=== PATIENT | male | born 1945 | race Caucasian/White ===

== ENCOUNTER 2025-02-03 20:32 | Inpatient (IN) | payer MEDICARE, BC, SELFPAY ==
[2025-02-03 14:47] VITALS: BP 161/101
--- NOTE | 2025-02-03 16:58 | ED.GENMED ---
History of Present Illness
<Luis Miguel Ureña PA-C - Last Filed: 02/03/25 18:49>
General
Chief Complaint: Breathing Problem
Source: patient
Exam Limitations: none
Time Seen by Provider: 02/03/25 16:35
History of Present Illness
History of Present Illness:
79-year-old male with history of COPD, hypertension presents with a weeks worth of worsening shortness of breath. He also notes leg swelling. He was seen by the family doctor and sent here for further evaluation. He denies chest pain. He is not
anticoagulated. No prior history of arrhythmias. No other
Phy Exam
<Luis Miguel Ureña PA-C - Last Filed: 02/03/25 18:49>
Physical Exam
Physical Exam:
General: Well-appearing male with increased work of breathing
HEENT: Normal cephalic atraumatic
Heart: Irregular rate and rhythm
Lungs: Distant bilaterally with expiratory wheeze
Extremities: Pitting edema bilateral lower extremities
Skin warm no rash
Scores
<Luis Miguel Ureña PA-C - Last Filed: 02/03/25 18:49>
Heart Failure Risk
Heart Failure Risk Score: Not Applicable
Course
<Luis Miguel Ureña PA-C - Last Filed: 02/03/25 18:49>
Orders/Labs/Results
Orders:
Orders
02/03/25 16:47
EKG [Electrocardiogram (*1)] Urgent
Reason for Study: Shortness of Breath
EKG- Treatment ONCE
02/03/25 16:54
Ipratropium/Albuterol Sulfate [Duoneb] 3 ml INH R NOW STA
CR Chest - 2 Views Urgent
Comment:
Reason For Exam: sob
02/03/25 16:57
Furosemide [Lasix] 40 mg IV NOW STA
02/03/25 17:06
Complete Blood Count/With Diff Urgent
Comprehensive Metabolic Panel Urgent
NT-proBNP Urgent
02/03/25 18:43
Azithromycin 500 mg/250 ml [Zithromax Infusion] 500 mg in 250 ml IV NOW
CefTRIAXone [Rocephin] 1,000 mg IV NOW STA
Abnormal Lab Results
02/03/25
17:06
WBC 15.7 H 10^3/uL
(4.8-10.8)
MCH 31.7 H pg
(27.0-31.0)
MPV 10.9 H fL
(7.4-10.4)
Abs Immat Gran (auto) 0.1 H 10^3/uL
(0-0.05)
Absolute Neuts (auto) 14.3 H 10^3/uL
(1.4-6.5)
Absolute Lymphs (auto) 0.4 L 10^3/uL
(1.2-3.4)
Absolute Monos (auto) 0.9 H 10^3/uL
(0.1-0.6)
Immature Gran % 0.6 H %
(0-0.5)
Neutrophils % 90.8 H %
(42.2-75.2)
Lymphocytes % 2.4 L %
(20.5-51.1)
Sodium 130 L mmol/L
(135-145)
Chloride 92 L mmol/L
(98-107)
BUN 38 H mg/dl
(9-20)
Glucose 106 H mg/dl
(70-99)
Total Bilirubin 1.5 H mg/dl
(0.2-1.3)
AST 79 H U/L
(17-59)
02/03/25 17:06
02/03/25 17:06
Vital Signs
Initial and Last Documented VS:
Initial Vital Signs
Temp Pulse Resp BP Pulse Ox
98.1 F 83 26 161/101 85
02/03/25 14:47 02/03/25 14:47 02/03/25 14:47 02/03/25 14:47 02/03/25 14:47
Last Documented Vital Signs
Temp Pulse Resp BP Pulse Ox
98.1 F 83 26 161/101 93
02/03/25 14:47 02/03/25 14:47 02/03/25 14:47 02/03/25 14:47 02/03/25 17:02
<Nicolas Montero, DO - Last Filed: 02/03/25 17:08>
Orders/Labs/Results
Orders:
Orders
02/03/25 16:47
EKG [Electrocardiogram (*1)] Urgent
Reason for Study: Shortness of Breath
EKG- Treatment ONCE
02/03/25 16:54
Ipratropium/Albuterol Sulfate [Duoneb] 3 ml INH R NOW STA
CR Chest - 2 Views Urgent
Comment:
Reason For Exam: sob
02/03/25 16:57
Furosemide [Lasix] 40 mg IV NOW STA
02/03/25 17:06
Complete Blood Count/With Diff Urgent
Comprehensive Metabolic Panel Urgent
NT-proBNP Urgent
02/03/25 18:43
Azithromycin 500 mg/250 ml [Zithromax Infusion] 500 mg in 250 ml IV NOW
CefTRIAXone [Rocephin] 1,000 mg IV NOW STA
Abnormal Lab Results
02/03/25
17:06
WBC 15.7 H 10^3/uL
(4.8-10.8)
MCH 31.7 H pg
(27.0-31.0)
MPV 10.9 H fL
(7.4-10.4)
Abs Immat Gran (auto) 0.1 H 10^3/uL
(0-0.05)
Absolute Neuts (auto) 14.3 H 10^3/uL
(1.4-6.5)
Absolute Lymphs (auto) 0.4 L 10^3/uL
(1.2-3.4)
Absolute Monos (auto) 0.9 H 10^3/uL
(0.1-0.6)
Immature Gran % 0.6 H %
(0-0.5)
Neutrophils % 90.8 H %
(42.2-75.2)
Lymphocytes % 2.4 L %
(20.5-51.1)
Sodium 130 L mmol/L
(135-145)
Chloride 92 L mmol/L
(98-107)
BUN 38 H mg/dl
(9-20)
Glucose 106 H mg/dl
(70-99)
Total Bilirubin 1.5 H mg/dl
(0.2-1.3)
AST 79 H U/L
(17-59)
02/03/25 17:06
02/03/25 17:06
Vital Signs
Initial and Last Documented VS:
Initial Vital Signs
Temp Pulse Resp BP Pulse Ox
98.1 F 83 26 161/101 85
02/03/25 14:47 02/03/25 14:47 02/03/25 14:47 02/03/25 14:47 02/03/25 14:47
Last Documented Vital Signs
Temp Pulse Resp BP Pulse Ox
98.1 F 83 26 161/101 93
02/03/25 14:47 02/03/25 14:47 02/03/25 14:47 02/03/25 14:47 02/03/25 17:02
<Luis Miguel Ureña PA-C - Last Filed: 02/03/25 18:49>
MDM/Problems Addressed
Differential Diagnosis Includes:
Patient here with shortness of breath. Looks volume overloaded on exam is wheezing. He is now requiring 5 L of nasal oxygen where typically he is not on oxygen. Consider COPD for CHF.
EKG does demonstrate atrial fibrillation with a rate of 94 no ischemic changes. This is new for the patient.
Labs pending Lasix ordered neb ordered chest x-ray
<Luis Miguel Ureña PA-C - Last Filed: 02/03/25 18:49>
*Pulse Oximetry
SaO2: 91
Nasal Cannula flow liters per minute: 3
Oxygen Mode of Delivery: Room air
Patient hypoxic: no
*Critical Care Note
Total Time (30-74mins, 75-104mins- exclusive of procedures): Not Applicable
<Luis Miguel Ureña PA-C - Last Filed: 02/03/25 18:49>
Update Note
Update Note:
Patient received nebulizer here Lasix here chest x-ray shows consolidation of the right lower lobe suspicious for pneumonia. White blood cell count is 15.7. Will cover for pneumonia with Rocephin and Zithromax. Patient is requiring supplemental
oxygen will admit to hospital
ED Attending Note
<Luis Miguel Ureña PA-C - Last Filed: 02/03/25 18:49>
-
Portions of this chart may have been created with voice recognition software.� Occasional wrong word or��sound alike� substitutions may have occurred due to the inherent limitations of voice recognition software.
<Nicolas Montero DO - Last Filed: 02/03/25 17:08>
ED Attending Note
Patient seen and examined by attending physician: Yes
I performed the substantive portion of visit, reviewed & personally made and approve the management plan that is documented in note by myself or REINA.: Yes
ED Attending Note:
I have seen and evaluated the patient with a [id number] encounter. I have spoken to the advance practicer provider and involved in the medical history, the physical exam, medical decision making.
Evaluation and management service: agree unless noted differently below.
Results interpretation: agree unless noted differently below.
Focused HPI: 79-year-old male presenting for evaluation of new onset A-fib and hypoxia. Patient has a history of COPD. He complains of swelling in both legs and trouble laying flat due to shortness of breath
Physical exam: Rhonchorous breath sounds with crackles at bases. Pitting edema both legs. Irregular rhythm
Medical Decision Making: New onset A-fib potentially in the setting of new onset CHF or vice versa. Patient is rate controlled. Will give IV Lasix. Will ultimately admit given his hypoxia
Discharge Plan
Departure
Patient Disposition: Admit
Date of Disposition: 02/03/25
Time of Disposition: 18:45
Presentation/result/management discussed w/ accepting MD/DO: Hospitalist
Discharge Problem:
Pneumonia, Atrial fibrillation
Referrals:
Diane Mcnulty PA [Family Provider, Family Practice]
Interventions
Interventions:
*Risk Screen - Suicide Last Done: 02/03/25 14:47
*General Assessment Last Done: 02/03/25 14:47
*Neglect/Abuse Screening Last Done: 02/03/25 14:47
ED- Cardiac Assessment Last Done: 02/03/25 17:02
ED- Pulmonary Assessment Last Done: 02/03/25 17:02
Discharge Date and Time
Print Language: KOSOVAN
[2025-02-03 17:04] VITALS: BMI 24.8
[2025-02-03] MEDS: LASIX 40 MG IV (17:11)
[2025-02-03] MEDS: DUONEB 3 ML INH (17:11)
[2025-02-03 17:20] LABS: Hematocrit 44.6 % (39.0-52.0); Hemoglobin 15.8 g/dL (13.0-18.0); Mean Corp Hgb Conc. 35.4 g/dL (33.0-37.0); Mean Corpuscular Volume 89.4 fL (80.0-94.0); Nucleated Red Blood Cells % 0 % (-); Platelet Count 178 10^3/uL (130-400); Red Cell Dist. Width 13.8 % (11.5-14.5)
[2025-02-03 17:35] LABS: ALT (SGPT) 45 U/L (0-50); AST (SGOT) 79 U/L (17-59); Albumin 4.6 g/dl (3.5-5.0); Alkaline Phosphatase 68 U/L (38-126); Blood Urea Nitrogen 38 mg/dl (9-20); Calcium 9.3 mg/dl (8.4-10.2); Carbon Dioxide 26 mmol/L (22-30); Chloride 92 mmol/L (98-107); Estimated Creatinine Clearance 74 ml/min; Glucose 106 mg/dl (70-99); Potassium 4.2 mmol/L (3.5-5.1); Sodium 130 mmol/L (135-145); Total Protein 7.5 g/dl (6.3-8.2); eGFR > 60.00
[2025-02-03 18:39] VITALS: BP 148/62
[2025-02-03 19:00] VITALS: BP 141/72
--- NOTE | 2025-02-03 19:09 | HPS.HSE ---
Family Physician
-
Family Physician: Diane Mcnulty
Chief Complaint
-
Shortness of breath
History of Present Illness
This is a 79-year-old male with past medical history significant for hypertension, COPD who presents to the emergency department with several weeks of worsening shortness of breath and lower extremity swelling.
Patient reports symptoms began about 1 week ago. He said that he started to wait upper respiratory symptoms such as sore throat and any cough. A few days later his developed similar symptoms but she got over it. He continued to have cough
that went from clear mucus to brown mucus. He started having dyspnea on exertion and shortness of breath. He denies any chest pain. He reported chills. He denied bossman fevers.
He denies any palpitations. He reports that when he lays down he does feel more short of breath due to increased cough production. Patient reports long history of intermittent lower extremity swelling. Initially said this was secondary to
amlodipine which he has been on for several years. He says his weight is around 185 pounds and it has not changed recently. He reports that the edema is dependent that he usually takes hydrochlorothiazide for it. He denies any history of recent
chest pain. He denies lightheadedness or dizziness.
In the emergency department patient was afebrile with a temp of 98.1, blood pressure was 161/100 with a pulse of 83 and he was satting as low as 85% on room air. ECG shows new onset atrial fibrillation at a rate of 94. Chest x-ray with a right
lower lobe infiltrate. BNP was elevated at 1370. He had leukocytosis with a white count of 15.7, hemoglobin and platelets were normal. Sodium was 130 electrolytes BUN and creatinine were all in the normal range with a glucose of 106.
Medical History
Past Medical History
Past Medical History: Reports COPD, HTN and Hypercholesterolemia
Past Surgical History: Reports None
Social History
Tobacco: Former Smoker
Alcohol: Daily (1 glass of wine per family and patient)
Drug: None
Personal:
Living: With Family
Employment: Retired
Family History
Family History: Not pertinent
Allergies / Home Medications
Allergies reflects when Allergies were last updated in [facility].
Home Medications with original date entered in [facility]
Allergy/Medication List:
Allergies
Allergy/AdvReac Type Severity Reaction Status Date / Time
No Known Allergies Allergy Unverified 02/03/25 14:47
Home Medications
hydrochlorothiazide 25 mg tablet 12.5 mg PO DAILY 02/03/25
Amlodipine 10 mg tablet, 10 mg p.o. daily
Incruse Ellipta days 2.5 mcg, 1 puff daily
Review of Systems
-
Constitutional: Reports No Symptoms
EENT: Reports No Symptoms
Respiratory: Reports Cough and Trouble Breathing
Cardiac: Reports No Symptoms
Abdomen/GI: Reports No Symptoms
: Reports No Symptoms
Musculoskeletal: Reports Edema
Skin: Reports No Symptoms
Neurological: Reports No Symptoms
Endocrine: Reports No Symptoms
Hematologic/Lymphatic: Reports No Symptoms
Psych: Reports No Symptoms
Physical Exam
Vital Signs
Vital Signs
Temp Pulse Resp BP Pulse Ox
98.1 F 83 26 161/101 93
02/03/25 14:47 02/03/25 14:47 02/03/25 14:47 02/03/25 14:47 02/03/25 17:02
Physical Exam
General: Well Developed and Conversant
HEENT: NormoCephalic, Anicteric, Moist mucous membranes, Atraumatic and Oxygen
Respiratory: Clear, Wheezes (Profuse wheezing mostly in the right upper and lower lobe, decreased air movement the), Rhonchi and Non Labored Respirations; No Crackles
Cardiac: S1/S2 and Irregular Rhythm
Breast: Deferred by me
GI: Soft, Non Tender, Non Distended and Normal Bowel Sounds
Rectal: Deferred by Provider
Genito-urinary: Deferred by me
Musculoskeletal: Edema, Left Lower Extremity (2+ pitting) and Edema, Right Lower Extremity (2+ pitting)
Skin: Warm
Neuro: AO x 3 and Nonfocal/grossly intact
Psych: Calm
Laboratory Results
-
02/03/25 17:06
02/03/25 17:06
Laboratory Results
Total Bilirubin 1.5 mg/dl (0.2-1.3) H 02/03/25 17:06
AST 79 U/L (17-59) H 02/03/25 17:06
ALT 45 U/L (0-50) 02/03/25 17:06
Alkaline Phosphatase 68 U/L (38-126) 02/03/25 17:06
Data Reviewed
-
Diagnostic Radiology: Image Personally Visualized and interpreted
Medical Tests (Nuc Med, Echo, EKG etc): Image Personally Visualized and interpreted
Lab Data: Labs Reviewed by me
Old Records: Reviewed
Impression/Plan
-
IMPRESSION:
This is a 79-year-old with past medical history of COPD not on home O2, hypertension, former tobacco dependence presenting to the emergency department with shortness of breath wheezing cough and found to have a right lower lobe infiltrate. Clearly
has COPD exacerbation in addition to walking pneumonia. He has lower extremity swelling and new onset atrial fibrillation with controlled rate.
PLAN:
Pneumonia/COPD exacerbation -hypoxic respiratory failure secondary to pneumonia and COPD exacerbation with requirement for 2 L of oxygen. Right lower lobe infiltrate. This occurred in the setting of likely a URI and now he has a post URI pneumonia.
- Admit to telemetry
- Check Legionella and pneumococcal antigen
- Agree with continue with IV ceftriaxone and azithromycin
- Given the degree of wheezing will start oral steroid taper with 40 mg prednisone daily
- DuoNebs azvnti-aag-nazuj and as needed
- Continue his inhaled steroids
New onset atrial fibrillation -rate controlled.
- [id number] = 4, will start ac with eliquis 5
- metoprolol 12.5 bid for now for rate management
- Check TSH
- Echocardiogram
CHF -bilateral lower extremity edema with elevated BNP. 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 Patient feels this is secondary to his amlodipine
- DC hydrochlorothiazide, started on Lasix 40 mg IV daily for now
- Echo as above
- cardiology consultation
Hyponatremia - Hypervolemic
- fluid restriction
- diuretic as above and monitor
- stop hctz
DVT PPX - starting eliquis
Code status - DNR
[2025-02-03] MEDS: ROCEPHIN 1000 MG IV (19:22)
[2025-02-03] MEDS: ZITHROMAX INFUSION 250 IV (19:23)
[2025-02-03] MEDS: DELTASONE 40 MG PO (19:46)
[2025-02-03 20:01] VITALS: BP 143/50
[2025-02-03] MEDS: TYLENOL 650 MG PO (20:44)
[2025-02-03 22:00] VITALS: BP 148/73
--- NOTE | 2025-02-03 22:00 | PTCARENOTE ---
Pt arrived onto floor via stretcher. Pt AAOx3 and able to walk into room with minimal assistance. Pt with no complaints of pain or SOB, on 4L O2. Pt oriented to room and call palm; will continue to monitor.
[2025-02-03 22:01] VITALS: BMI 24.4
[2025-02-03 22:22] VITALS: BMI 24.4
[2025-02-03] MEDS: LOPRESSOR 12.5 MG PO (22:32)
[2025-02-03] MEDS: ELIQUIS 5 MG PO (22:32)
[2025-02-03] MEDS: SYMBICORT 160/4.5 MCG INHALER INH (22:50)
[2025-02-04] VITALS (8 sets, daily range): BP systolic 99–163; BP diastolic 61–86; PULSE 88; O2SAT 97; BMI 24.2
[2025-02-04 06:43] LABS: Hematocrit 41.2 % (39.0-52.0); Hemoglobin 14.7 g/dL (13.0-18.0); Mean Corp Hgb Conc. 35.7 g/dL (33.0-37.0); Mean Corpuscular Volume 90.7 fL (80.0-94.0); Platelet Count 176 10^3/uL (130-400); Red Cell Dist. Width 13.2 % (11.5-14.5)
[2025-02-04 07:14] LABS: Blood Urea Nitrogen 37 mg/dl (9-20); Calcium 8.9 mg/dl (8.4-10.2); Carbon Dioxide 28 mmol/L (22-30); Chloride 90 mmol/L (98-107); Estimated Creatinine Clearance 74 ml/min; Glucose 114 mg/dl (70-99); Potassium 3.9 mmol/L (3.5-5.1); Sodium 126 mmol/L (135-145); eGFR > 60.00
[2025-02-04] MEDS: SYMBICORT 160/4.5 MCG INHALER 2 PUFF INH ×2 (08:08→20:25)
[2025-02-04] MEDS: DUONEB 3 ML INH ×4 (08:11→20:25)
--- NOTE | 2025-02-04 09:02 | CON.CAR ---
Addendum entered and electronically signed by Madan Crowley DO 02/04/25 15:14:
I saw and examined the patient.
The Bottom Liquor Attendant's note was reviewed and I agree with the note.
Comment:
Plan:
Multifactorial dyspnea with acute respiratory failure from right lower lobe pneumonia, acute heart failure and newly diagnosed atrial fibrillation February 03, 2025
Continue IV diuresis with Lasix 40 mg IV daily. He was taking HCTZ prior to admission
Monitor I's and O's Daily weights and creatinine
Check echocardiogram to evaluate left ventricular systolic function in the setting of newly diagnosed atrial fibrillation and heart failure
Outpatient losartan was resumed, monitor blood pressure
Can consider SGLT2 inhibitor as outpatient given his current infection.
Continue Eliquis for stroke prophylaxis
Started on Toprol XL for rate control
Would continue rate control strategy for now given his respiratory status and COPD exacerbation
Continue pulmonary toilet including antibiotics and treatment of right lower lobe pneumonia as per primary service.
Discussed with at bedside and primary service
HPI:-Patient came to the ER last night from his PCPs office with LE edema and SOB for a week and was admitted with RLL PNA, acute HF and new A-fib prompting cardiology consultation. Patient sees his PCP at least twice a year and then as needed when
he is sick, patient reports that he and his both seem to have a cold but his was stable or getting better while he was only getting worse with symptoms of increasing SOB, edema and productive cough. In the PCP office there was some
concern for hypoxia and possible A-fib prompting referral to the ER. ECG in the ER looks like A-fib which is a new diagnosis and HR has been in the 90s without rate controlling medications. He denies any palpitations and no known history of A-fib.
He has never required OAC in the past. CXR in the ER confirmed RLL PNA and patient started on antibiotics. There was also some concern about acute HF and the proBNP was 1370 and patient was started on Lasix 40 mg IV daily and he reports increased
urine output and overall symptomatic improvement in SOB. Patient reports that LE edema appears to be acute on chronic and reports that within the last several months when his amlodipine dose was increased to 10 mg daily is when he first started to
notice increased edema. He is also chronically on HCTZ 25 mg daily and was noted to be hyponatremic on admission.
Original Note:
Consultation
Consultation Request
Date/Time Consultation Requested: 02/04/2025 at 0450
Date/Time Consultation Performed: 02/04/2025 at 0849
Requesting Provider: Dr. Bentley
Performing Provider: Dr. Crowley
Reason for Consultation: Newly diagnosed A-fib and acute HF
Medical History
-
History of Present Illness:
Patient came to the ER last night from his PCPs office with LE edema and SOB for a week and was admitted with RLL PNA, acute HF and new A-fib prompting cardiology consultation. Patient sees his PCP at least twice a year and then as needed when he
is sick, patient reports that he and his both seem to have a cold but his was stable or getting better while he was only getting worse with symptoms of increasing SOB, edema and productive cough. In the PCP office there was some concern
for hypoxia and possible A-fib prompting referral to the ER. ECG in the ER looks like A-fib which is a new diagnosis and HR has been in the 90s without rate controlling medications. He denies any palpitations and no known history of A-fib. He has
never required OAC in the past. CXR in the ER confirmed RLL PNA and patient started on antibiotics. There was also some concern about acute HF and the proBNP was 1370 and patient was started on Lasix 40 mg IV daily and he reports increased urine
output and overall symptomatic improvement in SOB. Patient reports that LE edema appears to be acute on chronic and reports that within the last several months when his amlodipine dose was increased to 10 mg daily is when he first started to notice
increased edema. He is also chronically on HCTZ 25 mg daily and was noted to be hyponatremic on admission.
PMH:
HTN
Emphysema/COPD
Former smoker
Past Medical History
Past Medical History: Other (In HPI)
Past Surgical History: None
Social History
Tobacco: Former Smoker (Smoked from his 20s to his 40s)
Alcohol: Daily (Glass of wine daily)
Drug: None
Personal:
Living: With Family
Family History
Family History: Other (His mother lived to be 90, his father had a stroke later in life, no strong family history of premature CAD)
Allergies / Home Medications
Allergy/AdvReac Type Severity Reaction Status Date / Time
No Known Allergies Allergy Unverified 02/03/25 14:47
�Medication �Instructions �Recorded �Confirmed �Type
acetaminophen 325 mg tablet 650 mg PO Q6HPRN PRN mild pain 02/03/25 02/03/25 History
(Tylenol)
amlodipine 10 mg tablet (Norvasc) 10 mg PO DAILY Blood Pressure 02/03/25 02/03/25 History
fluticasone 250 mcg-salmeterol 50 1 inh inhalation R BID sob 02/03/25 02/03/25 History
mcg/dose blistr powdr for
inhalation (Advair Diskus)
hydrochlorothiazide 25 mg tablet 25 mg PO DAILY Fluid 02/03/25 02/03/25 History
Retention/Swelling
losartan 25 mg tablet 25 mg PO DAILY Blood Pressure 02/03/25 02/03/25 History
umeclidinium 62.5 mcg/actuation 1 inh inhalation R DAILY sob 02/03/25 02/03/25 History
blister powder for inhalation
(Incruse Ellipta)
Review of Systems
-
History Source: Patient
All other systems: Negative unless noted
Physical Exam
Vital Signs
Temp Pulse Resp BP Pulse Ox
97.7 F 82 15 163/77 92
02/04/25 07:08 02/04/25 08:17 02/04/25 08:17 02/04/25 07:08 02/04/25 08:17
GEN: NAD, AAO x 3
HEENT: EOMI, MMM
LUNGS: 4 L NC. Diffuse expiratory wheeze without rales
CV: Rate controlled A-fib on telemetry. Irreg irreg, S1/S2, no appreciable murmur
ABD: ND
EXT: +1-2 pitting B/L LE edema
NEURO: Gross non-focal
SKIN: No rash
Lab Results
02/04/25 05:46
02/04/25 05:46
Fpk-I-Sbjnwdxztuc Pept 1370 pg/ml 02/03/25 17:06
Impression / Plan
-
PCP: Dr. Fuentes
Cardiology none
Impression:
Admitted with RLL PNA, acute HF and new A-fib 02/03/2025
RLL PNA
Acute HF unknown EF
Newly diagnosed paroxysmal atrial fibrillation of unclear duration
HTN
Emphysema/COPD
Former smoker
Hyponatremia
Plan:
-Patient came to the ER last night from his PCPs office with LE edema and SOB for a week and was admitted with RLL PNA, acute HF and new A-fib prompting cardiology consultation. Patient sees his PCP at least twice a year and then as needed when he
is sick, patient reports that he and his both seem to have a cold but his was stable or getting better while he was only getting worse with symptoms of increasing SOB, edema and productive cough. In the PCP office there was some concern
for hypoxia and possible A-fib prompting referral to the ER. ECG in the ER looks like A-fib which is a new diagnosis and HR has been in the 90s without rate controlling medications. He denies any palpitations and no known history of A-fib. He has
never required OAC in the past. CXR in the ER confirmed RLL PNA and patient started on antibiotics. There was also some concern about acute HF and the proBNP was 1370 and patient was started on Lasix 40 mg IV daily and he reports increased urine
output and overall symptomatic improvement in SOB. Patient reports that LE edema appears to be acute on chronic and reports that within the last several months when his amlodipine dose was increased to 10 mg daily is when he first started to notice
increased edema. He is also chronically on HCTZ 25 mg daily and was noted to be hyponatremic on admission.
-ECG reviewed by me looks like A-fib. Telemetry reviewed by me is also A-fib with controlled ventricular response.
-Patient being treated with azithromycin for RLL PNA.
-From a cardiac standpoint patient appears to be in acute HF with unknown EF.
-Weight is down 2 lbs overnight with Lasix 40 mg IV daily, continue diuresis as is. Patient was taking HCTZ 25 mg daily prior to admission.
-EF unknown, check echo on Thursday. Echo order confirmed by me.
-Patient was not taking beta-ronna medication prior to admission and now started on Lopressor 12.5 mg BID, patient is noted to be wheezing, but sounds similar to wheezing he had on admission. Patient has a history of emphysema and COPD but states
he does not typically wheeze. We will change Lopressor to Toprol-XL 25 mg daily starting 02/04/2025 PM, orders placed by me.
-Outpatient dose of losartan 25 mg daily was held on admission for unclear reasons, but will be resumed and orders placed by me 02/04/2025.
-Patient was not taking SGLT2 inhibitor prior to admission, will hold off in the setting of active PNA and can explore this as an outpatient.
-Patient with newly diagnosed A-fib with overall controlled ventricular response, duration of A-fib is unclear as patient is asymptomatic. HR overall controlled and so is possible A-fib has been going on for some time. Regardless rate control with
Toprol-XL as noted above.
-New to Eliquis 5 mg BID (age 79, Cre 0.9, wt 83 kg). Patient willing to continue with OAC and we reviewed stroke risk and bleeding risk and things to look for as a bleeding complication.
-Confirmed with patient that he has never seen a operating room manager prior to this admission, but he had cardiac testing with what sounds like an echo and stress test 20 years ago when he was initially diagnosed with COPD.
[2025-02-04] MEDS: LASIX 40 MG IV (09:09)
[2025-02-04] MEDS: ELIQUIS 5 MG PO ×2 (09:10→20:49)
[2025-02-04] MEDS: DELTASONE 40 MG PO (09:10)
[2025-02-04] MEDS: LOPRESSOR 12.5 MG PO (09:11)
[2025-02-04] MEDS: COZAAR 25 MG PO (13:06)
--- NOTE | 2025-02-04 13:32 | W.PN.HOSP.TC ---
Addendum entered and electronically signed by Mary Bentley MD 02/04/25 14:12:
I saw and evaluated the patient independently. I reviewed and discussed the resident�s note and agree with findings and plan as documented by Dr. Duran.
GENERAL: well developed, well nourished, male in no apparent distress
HEENT: NC/AT--O2 NC--soft hoarse voice
HEART: irreg irreg
LUNGS : rhonchi bilaterally--no wheezing (just finished a breathing treatment)
ABDOM: soft, nontender, nondistended, + bowel sounds
EXT: no cyanosis, clubbing-- 4+ LE pitting edema bilaterally
NEURO: nonfocal
Acute Hypoxemic respiratory failure secondary to COPD exacerbation from presumed community acquired pneumonia--wean O2 as able-- CXR with RLL pna-- Urine legionella and pneumococcal antigen test negative--cont ceftriaxone and oral azithromycin-
Continue on 40 mg prednisone daily to reduce airflow inflammation, duonebs ( made standing) and symbicort to help relieve inflammation and bronchoconstriction, and then acapella/ incentive spirometry-- check FLU/COVID
Dysphagia to oral medications-- ordered a speech eval
New onset atrial fibrillation- Confirmed on EKG, no previous history- [id number] = 4, Eliquis 5 mg bid started --CM to fernandez--cont Toprol XL--check ECHO--TSH WNL--apprec cards
Bilateral lower extremity edema with elevated BNP secondary to suspected CHF-unknown type--apprec cards--ECHO pending--diuresis--daily weights, I/Os
Hyponatremia secondary hypervolemia--follow with diuresis--stop HCTZ--cont lasix--fluid restriction
DVT Proph - eliquis
Code status - DNR
Original Note:
Today's Communication/Plan
-
- f/u with cardiology for pending echo, continue antibiotics, continue to observe vitals
Assessment / Plan
Assessment / Plan
Hypoxemic respiratory failure secondary to pneumonia in the setting of COPD exacerbation:
- On admission he was afebrile with a temperature 98.1, blood pressure was 161/100, pulse 83, 85 on room air
- Chest x-ray showed a right lower lobe infiltrate most likely right lower lobe pneumonia
- Urine legionella and pneumococcal antigen test negative
- Patient started on IV ceftriaxone and azithromycin (later transition to oral)
- Continue on 40 mg prednisone daily to reduce airflow inflammation, duonebs ( made standing) and symbicort to help relieve inflammation and bronchoconstriction, and then acapella/ incentive spirometry to open up airways and then clear mucous
- Ordered an influenza and covid test
Dysphagia to oral medications:
- ordered a speech eval
New onset atrial fibrillation:
- Confirmed on EKG, no previous history
- Admitted to telemetry
- [id number] = 4, Eliquis 5 mg bid started
- Continue with Toprol XL 25 mg for rate control
- TSH normal
- Echocardiogram pending
- Cardiology following
Bilateral lower extremity edema with elevated BNP secondary to suspected unknowns type of heart failure
Hyponatremia secondary hypervolemia?:
- patients clinical presentation is hypervolemic due to crackles in lungs, lower extremity edema, cough, and orthopnea.
- DC hydrochlorothiazide, started on Lasix 40 mg IV daily for now
- Echo pending
- fluid restriction
- c/w lasix 40 mg iv daily. Monitor weights, ins/ outs, urine output.
- stop hctz
DVT PPX - eliquis
Code status - DNR
Anticipated Discharge: 24 - 48 hours
Subjective/Interval History
-
Date of Service: February 04, 2025
Patient states shortness of breath, a productive cough, and inability to swallow a pill which started today on review of systems. No headache, nausea, fever, chills, nausea, vomiting, dizziness, syncope, abdominal pain, diarrhea, weakness, numbness,
palpations, chest pain.
Objective Data
-
Labs:
Laboratory Results
02/04/25
05:46
WBC 9.8
Hgb 14.7
Hct 41.2
Plt Count 176
Sodium 126 L
Potassium 3.9
Chloride 90 L
Carbon Dioxide 28
BUN 37 H
Creatinine 0.9
Glucose 114 H
Calcium 8.9
Vital Signs:
Vital Signs
Temp Pulse Resp BP Pulse Ox
97.8 F 78 18 139/78 95
02/04/25 11:29 02/04/25 11:39 02/04/25 11:39 02/04/25 11:29 02/04/25 11:39
I&O
02/03/25 02/04/25 02/05/25
06:59 06:59 06:59
Intake Total 240 / 240
Output Total 600 / 600
Balance -360 / -360
Review of Systems
-
History Source: Patient
All other systems: Reviewed and negative
Physical Exam
-
General: Well Developed
HEENT: Oxygen
Respiratory: Wheezes (diffuse over both lungs) and Rhonchi (diffuse over both lungs)
Cardiac: Regular Rhythm, Irregular Rhythm and Tachycardic
GI: Soft, Nontender, Nondistended and Normal Bowel Sounds
Musculoskeletal: No Clubbing, No Cyanosis, Edema, Right Lower Extrem and Edema, Left Lower Extrem
Skin: Warm and Dry
Neuro: AO x 3
Psych: Calm
Data Reviewed
-
Diagnostic Radiology: Report Reviewed by me and Discussed with Physician
Labs: Labs Reviewed by me and Discussed with Physician
--- NOTE | 2025-02-04 14:41 | CM ---
Addendum entered by Anna Marie Gresham 02/04/25 16:18:
Eliquis is $116.01, but was able to activate 30 day free co-pay card for 1 month only. Patient/ aware to look at his part D prescription plan in open enrollment time to see if he can change the cost of his high medications. Hospitalist aware
Original Note:
I.A: Completed By MELY Thrasher.
Patient lives with his in a [facility] with 2 RANDY, 2 BA on 03/31, No DME, uses Inhalers, No VN/PT, and No Inpatient Rehab.
PCP: Dr. Tristan Moore
Pharmacy: [facility]
Patient is not oxygen at home so watch for this. MELY Thrasher is pricing Eliquis. PLAN: Anticipate Home No Needs.
[2025-02-04] MEDS: ZITHROMAX 500 MG PO (15:08)
[2025-02-04 17:00] LABS: COVID-19 Antigen Negative (Negative)
[2025-02-04] MEDS: ROCEPHIN 1000 MG IV (17:07)
[2025-02-04] MEDS: STERILE WATER FOR INJECTION 10 ML IV (17:07)
[2025-02-04] MEDS: TOPROL XL 25 MG PO (22:36)
[2025-02-05 03:17] VITALS: BP 147/71
[2025-02-05 06:00] VITALS: BMI 24.5
[2025-02-05 07:13] VITALS: BP 154/75
[2025-02-05] MEDS: DUONEB 3 ML INH ×3 (07:34→20:04)
[2025-02-05] MEDS: SYMBICORT 160/4.5 MCG INHALER 2 PUFF INH ×2 (07:34→20:04)
[2025-02-05] MEDS: TYLENOL 650 MG PO (08:44)
[2025-02-05] MEDS: LASIX 40 MG IV ×2 (08:45→17:00)
[2025-02-05] MEDS: ZITHROMAX 500 MG PO (08:46)
[2025-02-05] MEDS: DELTASONE 40 MG PO (08:46)
[2025-02-05] MEDS: ELIQUIS 5 MG PO ×2 (08:47→20:41)
[2025-02-05] MEDS: TOPROL XL 25 MG PO (08:47)
[2025-02-05] MEDS: COZAAR 25 MG PO (08:47)
[2025-02-05 09:25] LABS: Hematocrit 43.3 % (39.0-52.0); Hemoglobin 15.0 g/dL (13.0-18.0); Mean Corp Hgb Conc. 34.6 g/dL (33.0-37.0); Mean Corpuscular Volume 89.8 fL (80.0-94.0); Nucleated Red Blood Cells % 0 % (-); Platelet Count 189 10^3/uL (130-400); Red Cell Dist. Width 13.4 % (11.5-14.5)
[2025-02-05 09:42] LABS: ALT (SGPT) 66 U/L (0-50); AST (SGOT) 72 U/L (17-59); Albumin 3.8 g/dl (3.5-5.0); Alkaline Phosphatase 68 U/L (38-126); Blood Urea Nitrogen 35 mg/dl (9-20); Calcium 9.3 mg/dl (8.4-10.2); Carbon Dioxide 30 mmol/L (22-30); Chloride 92 mmol/L (98-107); Estimated Creatinine Clearance 83 ml/min; Glucose 105 mg/dl (70-99); Magnesium 2.2 mg/dl (1.6-2.3); Potassium 3.7 mmol/L (3.5-5.1); Sodium 129 mmol/L (135-145); Total Protein 6.8 g/dl (6.3-8.2); eGFR > 60.00
--- NOTE | 2025-02-05 10:19 | W.PN.CARDCBS ---
Today's Communication / Plan
-
Continue IV diuresis and increase to Lasix 40 mg IV BID
Wt is flat
He was taking HCTZ prior to admission
Monitor I's and O's Daily weights and creatinine
Echo pending Feb 06 to evaluate left ventricular systolic function in the setting of newly diagnosed atrial fibrillation and heart failure
Cont GDMT:
Outpatient losartan was resumed, monitor blood pressure
Can consider SGLT2 inhibitor as outpatient given his current infection.
Regarding aFib:
Continue Eliquis for stroke prophylaxis
Cont Toprol XL started this admit for rate control, remains rate controlled
Would continue rate control strategy for now given his respiratory status and COPD exacerbation
Consider steroid adjustment with worsening wheezing, defer to primary service
Impression / Plan
-
.
PCP: Dr. Fuentes
Cardiology none
Impression:
Multifactorial dyspnea with acute respiratory failure from right lower lobe pneumonia, acute heart failure and newly diagnosed atrial fibrillation February 03, 2025
RLL PNA
Acute HF unknown EF
Newly diagnosed paroxysmal atrial fibrillation of unclear duration
HTN
Emphysema/COPD
Former smoker
Hyponatremia
Plan:
Multifactorial dyspnea with acute respiratory failure from right lower lobe pneumonia, acute heart failure and newly diagnosed atrial fibrillation February 03, 2025
Continue IV diuresis and increase to Lasix 40 mg IV BID
Wt is flat
He was taking HCTZ prior to admission
Monitor I's and O's Daily weights and creatinine
Echo pending Feb 06 to evaluate left ventricular systolic function in the setting of newly diagnosed atrial fibrillation and heart failure
Cont GDMT:
Outpatient losartan was resumed, monitor blood pressure
Can consider SGLT2 inhibitor as outpatient given his current infection.
Regarding aFib:
Continue Eliquis for stroke prophylaxis
Cont Toprol XL started this admit for rate control, remains rate controlled
Would continue rate control strategy for now given his respiratory status and COPD exacerbation
Continue pulmonary toilet including antibiotics and treatment of right lower lobe pneumonia as per primary service.
Consider steroid adjustment with worsening wheezing, defer to primary service
Discussed with primary service
HPI:-Patient came to the ER last night from his PCPs office with LE edema and SOB for a week and was admitted with RLL PNA, acute HF and new A-fib prompting cardiology consultation. Patient sees his PCP at least twice a year and then as needed when
he is sick, patient reports that he and his both seem to have a cold but his was stable or getting better while he was only getting worse with symptoms of increasing SOB, edema and productive cough. In the PCP office there was some
concern for hypoxia and possible A-fib prompting referral to the ER. ECG in the ER looks like A-fib which is a new diagnosis and HR has been in the 90s without rate controlling medications. He denies any palpitations and no known history of A-fib.
He has never required OAC in the past. CXR in the ER confirmed RLL PNA and patient started on antibiotics. There was also some concern about acute HF and the proBNP was 1370 and patient was started on Lasix 40 mg IV daily and he reports increased
urine output and overall symptomatic improvement in SOB. Patient reports that LE edema appears to be acute on chronic and reports that within the last several months when his amlodipine dose was increased to 10 mg daily is when he first started to
notice increased edema. He is also chronically on HCTZ 25 mg daily and was noted to be hyponatremic on admission.
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
Subjective
Date of Service: February 05, 2025
Pt seen and examined. No cp, breahing worse earlier this am
Objective
Labs:
02/05/25 08:20
02/05/25 08:20
Labs
Hgb 15.0 g/dL (13.0-18.0) 02/05/25 08:20
Hct 43.3 % (39.0-52.0) 02/05/25 08:20
Plt Count 189 10^3/uL (130-400) 02/05/25 08:20
Sodium 129 mmol/L (135-145) L 02/05/25 08:20
Potassium 3.7 mmol/L (3.5-5.1) 02/05/25 08:20
BUN 35 mg/dl (9-20) H 02/05/25 08:20
Creatinine 0.8 mg/dL (0.7-1.3) 02/05/25 08:20
Glucose 105 mg/dl (70-99) H 02/05/25 08:20
Vital Signs and I&O:
Vital Signs
Temp Pulse Resp BP Pulse Ox
97.8 F 85 16 154/75 94
02/05/25 07:13 02/05/25 07:38 02/05/25 07:38 02/05/25 08:45 02/05/25 08:00
Vital Signs
Temp Pulse Resp BP Pulse Ox
97.8 F 85 16 154/75 94
02/05/25 07:13 02/05/25 07:38 02/05/25 07:38 02/05/25 08:45 02/05/25 08:00
Intake & Output
02/03/25 02/04/25 02/05/25 02/06/25
06:59 06:59 06:59 06:59
Intake Total 240 / 240 670 / 670
Output Total 600 / 600 250 / 250
Balance -360 / -360 420 / 420
Physical Exam
Physical Exam
General: No acute distress, AAOX3
Neck: Negative JVD
Heart: Irregularly irregular, Negative S3 positive S1/S2, Negative S4, No murmur
Lungs: Diffuse wheezing/rales/rhonchi
Abd: Positive BS, NT/ND, neg rebound/rigidity/guarding
Ext: Negative cyanosis/clubbing/edema
Neuro: nonfocal
[2025-02-05 11:47] VITALS: BP 139/76
--- NOTE | 2025-02-05 12:55 | PTOTSP ---
Speech Therapy Evaluation
Pt seen for bedside swallow assessment. Pt is at an increased risk of aspiration given history of COPD, current need for O2 (4L NC), and dx of RLL PNA. Pt managed regular solids and thin liquids with no overt s/sx of aspiration. Voice characterized
by hoarseness and breathiness. Pt reports voice changes started when upper respiratory issues appeared. Pt denies coughing during meals but notes cough is present most at night. PNA likely bacterial/infectious vs aspiration related.
Recommendation:
1. IDDSI 7 Regular solids, IDDSI 0 thin liquids
2. Medication as best tolerated (Pt prefers whole in applesauce)
3. Standard aspiration precautions
4. Aspiration risk factors present. At bedside pt managing regular solids and thin liquids with no overt s/sx of aspiration. 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 Please reconsult if concerned for aspiration or if worsening chest imaging/respiratory status.
--- NOTE | 2025-02-05 13:11 | W.PN.HOSP.TC ---
Addendum entered and electronically signed by Mary Bentley MD 02/05/25 15:12:
I saw and evaluated the patient independently. I reviewed and discussed the resident�s note and agree with findings and plan as documented by Dr. Duran.
GENERAL: well developed, well nourished, male in no apparent distress
HEENT: NC/AT--O2 NC--soft hoarse voice
HEART: irreg irreg
LUNGS : rhonchi bilaterally-- wheezing diffusely
ABDOM: soft, nontender, nondistended, + bowel sounds
EXT: no cyanosis, clubbing-- 4+ LE pitting edema bilaterally
NEURO: nonfocal
Acute Hypoxemic respiratory failure secondary to COPD exacerbation from presumed community acquired pneumonia and acute exacerbation of CHF-unknown type--wean O2 as able-- CXR with RLL pna-- Urine legionella and pneumococcal antigen test
negative--cont ceftriaxone and oral azithromycin- Continue on 40 mg prednisone daily, duonebs, and symbicort-- acapella/ incentive spirometry-- FLU/COVID neg--Echo pending--cont diuresis
Dysphagia to oral medications-- ordered a speech eval--passed--reg diet, thins
New onset atrial fibrillation- Confirmed on EKG, no previous history- [id number] = 4, Eliquis 5 mg bid started --CM priced--cont Toprol XL--ECHO Thursday--TSH WNL--apprec cards
Bilateral lower extremity edema with elevated BNP secondary to suspected CHF--unknown type--apprec cards--ECHO pending--diuresis, cards increased lasix--daily weights, I/Os
Hyponatremia secondary hypervolemia--follow with diuresis--stop HCTZ--cont lasix--fluid restriction--improving
DVT Proph - eliquis
Code status - DNR
Original Note:
Today's Communication/Plan
-
- f/u with cardiology
- continue to trend weight and cmp
- continue to monitor respiratory status
Assessment / Plan
Assessment / Plan
Hypoxemic respiratory failure secondary to pneumonia in the setting of COPD exacerbation:
- On admission he was afebrile with a temperature 98.1, blood pressure was 161/100, pulse 83, 85 on room air
- Chest x-ray showed a right lower lobe infiltrate most likely right lower lobe pneumonia
- Urine legionella and pneumococcal antigen test negative
- continue on IV ceftriaxone and azithromycin (later transition to oral)
- Continue on 40 mg prednisone daily to reduce airflow inflammation, duonebs ( made standing) and symbicort to help relieve inflammation and bronchoconstriction, and then acapella/ incentive spirometry to open up airways and then clear mucous
- Will order tesslon pearls for cough
- influenza/ covid negative
- sputum culture pending
Dysphagia to oral medications:
- speech eval pending
New onset atrial fibrillation:
- Confirmed on EKG, no previous history
- Admitted to telemetry
- [id number] = 4, continue Eliquis
- Continue with Toprol XL 25 mg for rate control
- TSH normal
- Echocardiogram pending
- Cardiology following
Bilateral lower extremity edema with elevated BNP secondary to suspected unknowns type of heart failure
Hyponatremia secondary hypervolemia?:
- patients clinical presentation is hypervolemic due to crackles in lungs, lower extremity edema, cough, and orthopnea.
- switch Lasix 40 mg IV daily to 40 mg IV BID as his weight has increased 1 kg since yesterday. His weight is 84 kg today from 83 kg yesterday.
- Echo pending
- fluid restriction because he is volume overloaded on exam and on labs
- Monitor weights, ins/ outs, urine output.
- stop hctz
DVT PPX - eliquis
Code status - DNR
Anticipated Discharge: 24 - 48 hours
Subjective/Interval History
-
Date of Service: February 05, 2025
Patient states persistent shortness of breath, a productive cough, and inability to sleep all night due to the cough which he stated today on review of systems. No headache, nausea, fever, chills, nausea, vomiting, dizziness, syncope, abdominal
pain, diarrhea, weakness, numbness, palpations, chest pain.
Objective Data
-
Labs:
Laboratory Results
02/05/25
08:20
WBC 11.2 H
Hgb 15.0
Hct 43.3
Plt Count 189
Sodium 129 L
Potassium 3.7
Chloride 92 L
Carbon Dioxide 30
BUN 35 H
Creatinine 0.8
Glucose 105 H
Calcium 9.3
Total Bilirubin 1.1
AST 72 H
ALT 66 H
Alkaline Phosphatase 68
Vital Signs:
Vital Signs
Temp Pulse Resp BP Pulse Ox
97.7 F 83 18 139/76 92
02/05/25 11:47 02/05/25 11:47 02/05/25 11:47 02/05/25 11:47 02/05/25 11:47
I&O
02/04/25 02/05/25 02/06/25
06:59 06:59 06:59
Intake Total 240 / 240 670 / 670
Output Total 600 / 600 250 / 250
Balance -360 / -360 420 / 420
Review of Systems
-
History Source: Patient
All other systems: Reviewed and negative
Physical Exam
-
General: Well Developed
HEENT: Oxygen
Respiratory: Wheezes (diffuse over both lungs) and Rhonchi (diffuse over both lungs)
Cardiac: Regular Rhythm, Irregular Rhythm and Tachycardic
GI: Soft, Nontender, Nondistended and Normal Bowel Sounds
Musculoskeletal: No Clubbing, No Cyanosis, Edema, Right Lower Extrem and Edema, Left Lower Extrem
Skin: Warm and Dry
Neuro: AO x 3
Psych: Calm
Data Reviewed
-
Diagnostic Radiology: Report Reviewed by me and Discussed with Physician
Labs: Labs Reviewed by me and Discussed with Physician
[2025-02-05 15:08] VITALS: BP 129/66
[2025-02-05] MEDS: STERILE WATER FOR INJECTION 10 ML IV (17:01)
[2025-02-05] MEDS: ROCEPHIN 1000 MG IV (17:01)
[2025-02-05 20:15] VITALS: BP 149/71
[2025-02-05] MEDS: TESSALON PERLES 200 MG PO (23:17)
[2025-02-05 23:58] VITALS: BP 142/75
[2025-02-06] VITALS (7 sets, daily range): BP systolic 133–165; BP diastolic 63–81; PULSE 79–95; O2SAT 96
[2025-02-06 06:45] LABS: Hematocrit 44.1 % (39.0-52.0); Hemoglobin 15.3 g/dL (13.0-18.0); Mean Corp Hgb Conc. 34.7 g/dL (33.0-37.0); Mean Corpuscular Volume 92.8 fL (80.0-94.0); Nucleated Red Blood Cells % 0 % (-); Platelet Count 199 10^3/uL (130-400); Red Cell Dist. Width 13.1 % (11.5-14.5)
[2025-02-06 07:07] LABS: ALT (SGPT) 74 U/L (0-50); AST (SGOT) 65 U/L (17-59); Albumin 3.9 g/dl (3.5-5.0); Alkaline Phosphatase 58 U/L (38-126); Blood Urea Nitrogen 31 mg/dl (9-20); Calcium 9.3 mg/dl (8.4-10.2); Chloride 90 mmol/L (98-107); Estimated Creatinine Clearance 74 ml/min; Glucose 94 mg/dl (70-99); Magnesium 2.1 mg/dl (1.6-2.3); Potassium 4.0 mmol/L (3.5-5.1); Sodium 132 mmol/L (135-145); Total Protein 6.4 g/dl (6.3-8.2); eGFR > 60.00
[2025-02-06 07:15] LABS: Carbon Dioxide 32 mmol/L (22-30)
[2025-02-06] MEDS: SYMBICORT 160/4.5 MCG INHALER 2 PUFF INH ×2 (07:19→20:27)
[2025-02-06] MEDS: LASIX 40 MG IV ×2 (07:31→16:06)
[2025-02-06] MEDS: ZITHROMAX 500 MG PO (07:31)
[2025-02-06] MEDS: DELTASONE 40 MG PO (07:32)
[2025-02-06] MEDS: TOPROL XL 25 MG PO (07:32)
[2025-02-06] MEDS: ELIQUIS 5 MG PO ×2 (07:32→21:17)
[2025-02-06] MEDS: COZAAR 25 MG PO (07:32)
--- NOTE | 2025-02-06 08:41 | W.PN.HOSP.TC ---
Today's Communication/Plan
-
Echo pending
Assessment / Plan
Assessment / Plan
Impression
Mr. Ulysses Duran is a 79-year-old with past medical history of COPD not on home O2, HTN, former tobacco dependence presenting to the emergency department with shortness of breath wheezing cough and found to have a right lower lobe infiltrate.
Evidently has COPD exacerbation in addition to walking pneumonia. He has lower extremity swelling and new onset atrial fibrillation with controlled rate.
HPI
Patient reports symptoms began about 1 week ago. He said that he started to wait upper respiratory symptoms such as sore throat and any cough. A few days later his developed similar symptoms but she got over it. He continued to have cough
that went from clear mucus to brown mucus. He started having dyspnea on exertion and shortness of breath. He denies any chest pain. He reported chills. He denied bossman fevers.
He denies any palpitations. He reports that when he lays down he does feel more short of breath due to increased cough production. Patient reports long history of intermittent lower extremity swelling. Initially said this was secondary to
amlodipine which he has been on for several years. He says his weight is around 185 pounds and it has not changed recently. He reports that the edema is dependent that he usually takes hydrochlorothiazide for it. He denies any history of recent
chest pain. He denies lightheadedness or dizziness.
ED course
In the emergency department patient was afebrile with a temp of 98.1, blood pressure was 161/100 with a pulse of 83 and he was satting as low as 85% on room air. ECG shows new onset atrial fibrillation at a rate of 94. Chest x-ray with a right
lower lobe infiltrate/pneumonia. BNP was elevated at 1370. He had leukocytosis with a white count of 15.7, hemoglobin and platelets were normal. Sodium was 130 electrolytes BUN and creatinine were all in the normal range with a glucose of 106.
Chest x-ray 02/03/2025: Right lower lobe pneumonia
Plan
Hypoxemic respiratory failure secondary to pneumonia in the setting of COPD exacerbation:
COPD
:: On admission he was afebrile with a temperature 98.1, blood pressure was 161/100, pulse 83, 85 on room air
:: Chest x-ray showed a right lower lobe infiltrate most likely right lower lobe pneumonia
:: Urine legionella and pneumococcal antigen test negative
- continue IV ceftriaxone (02/03/2025� ) and p.o. azithromycin (02/04/2025� )
- Continue 40 mg prednisone daily to reduce airflow inflammation, duonebs (standing) and symbicort to relieve inflammation and bronchoconstriction, and acapella/ incentive spirometry to open airways and clear mucous
- Tessalon pearls for cough
:: influenza and covid negative
- sputum culture final pending. Usual respiratory jayleen
- On 2 L nasal cannula 02/06/2025. Wean as tolerated. Not on O2 at home
New onset paroxysmal atrial fibrillation:
:: Confirmed on EKG on admission 02/03/2025, no previous history
:: Admitted to telemetry
- [id number] = 4, continue Eliquis
- Continue with Toprol XL 25 mg for rate control
:: TSH normal
- Echocardiogram pending
Cardiology following
� Consider steroid adjustment with worsening wheezing. Defer to primary service
Bilateral lower extremity edema with elevated BNP secondary to suspected unknowns type of heart failure
Hyponatremia secondary to hypervolemia?
Hypertension
:: hypervolemic given crackles, lower extremity edema, cough, and orthopnea.
� Fluid restriction 64 ounces daily
- Increased Lasix 40 mg IV daily to 40 mg IV BID as his weight has increased 1 kg since yesterday. His weight is 84 kg today from 83 kg yesterday.
- Echo pending
- Monitor weights, ins/outs, urine output.
� Continue INFORMATION MANAGEMENT MANAGER losartan 25 mg p.o. daily
� Held amlodipine 10 mg p.o. daily due to lower extremity edema
- hctz held due to hyponatremia. Anticipate discontinuing due to increase side effects in older adults
Dysphagia to oral medications:
- speech recommendation: Regular diet
1. IDDSI 7 Regular solids, IDDSI 0 thin liquids
2. Medication as best tolerated (Pt prefers whole in applesauce)
3. Standard aspiration precautions
4. Aspiration risk factors present. At bedside pt managing regular solids and thin liquids with no overt s/sx of aspiration. FUEL MANAGER s/o. Please reconsult if concerned for aspiration or if worsening chest imaging/respiratory status.
DVT PPX - eliquis
Code status - DNR
Anticipated Discharge: 24 - 48 hours
Subjective/Interval History
-
Date of Service: February 06, 2025
No acute events overnight. Patient states his breathing is better than yesterday (on 2 L this morning). Patient stated his hoarseness is new since his pneumonia symptoms started.
The patient denied chest pain, feeling palpitations, feeling tachycardia, lightheadedness, vision changes, weakness, tingling, numbness.
Objective Data
-
Labs:
Microbiology Results - Entire Visit
02/04/25 07:29 Sputum Respiratory Culture - Preliminary
Usual Respiratory Jayleen
02/04/25 07:29 Sputum Gram Stain - Preliminary
02/04/25 16:30 Nasal Swab Influenza Types A & B (LEONCIO) - Final
Negative for Influenza A & B, NAAT
Negative results must be combined with clinical observations
and patient history.
Nucleic Acid Amplification test (NAAT)performed on the
[employer] platform.
02/03/25 22:39 Urine Legionella Urinary Antigen - Final
Negative for Legionella pneumophila Serogroup 1 antigen.
A negative result does not rule out the possiblity of
Legionella infection due to other serogroups or species of
Legionella. Clinical correlation is recommended.
02/03/25 22:39 Urine Streptococcus pneumoniae Antigen (M - Final
Negative for Streptococcus pneumoniae antigen.
A negative result does not exclude infection with
Streptococcus pneumoniae. Clinical correlation is
recommended.
Hematology and Coagulation - Last 24 hours
02/05/25 02/06/25 Range/Units
08:20 05:44
WBC 11.2 H 11.8 H (4.8-10.8) 10^3/uL
RBC 4.82 4.75 (4.70-6.10) 10^6/uL
Hgb 15.0 15.3 (13.0-18.0) g/dL
Hct 43.3 44.1 (39.0-52.0) %
MCV 89.8 92.8 (80.0-94.0) fL
MCH 31.1 H 32.2 H (27.0-31.0) pg
MCHC 34.6 34.7 (33.0-37.0) g/dL
RDW 13.4 13.1 (11.5-14.5) %
Plt Count 189 199 (130-400) 10^3/uL
MPV 10.7 H 10.5 H (7.4-10.4) fL
Abs Immat Gran (auto) 0.1 H 0.1 H (0-0.05) 10^3/uL
Absolute Neuts (auto) 9.0 H 9.4 H (1.4-6.5) 10^3/uL
Absolute Lymphs (auto) 0.9 L 0.8 L (1.2-3.4) 10^3/uL
Absolute Monos (auto) 1.2 H 1.6 H (0.1-0.6) 10^3/uL
Absolute Eos (auto) 0.0 0.0 (0-0.7) 10^3/uL
Absolute Basos (auto) 0.0 0.0 (0-0.2) 10^3/uL
Immature Gran % 0.6 H 0.9 H (0-0.5) %
Neutrophils % 80.2 H 79.1 H (42.2-75.2) %
Lymphocytes % 7.8 L 6.5 L (20.5-51.1) %
Monocytes % 11.0 H 13.1 H (1.7-9.3) %
Eosinophils % 0.2 0.2 (0-6) %
Basophils % 0.2 0.2 (0-2) %
Nucleated RBC % 0 0 (-) %
Blood Gas and Chemistry - Last 24 hours
02/05/25 02/06/25 Range/Units
08:20 05:44
Sodium 129 L 132 L (135-145) mmol/L
Potassium 3.7 4.0 (3.5-5.1) mmol/L
Chloride 92 L 90 L (98-107) mmol/L
Carbon Dioxide 30 32 H (22-30) mmol/L
BUN 35 H 31 H (9-20) mg/dl
Creatinine 0.8 0.9 (0.7-1.3) mg/dL
Estimated Creat Clear 83 74 ml/min
eGFR > 60.00 > 60.00
Glucose 105 H 94 (70-99) mg/dl
Calcium 9.3 9.3 (8.4-10.2) mg/dl
Magnesium 2.2 2.1 (1.6-2.3) mg/dl
Total Bilirubin 1.1 0.9 (0.2-1.3) mg/dl
AST 72 H 65 H (17-59) U/L
ALT 66 H 74 H (0-50) U/L
Alkaline Phosphatase 68 58 (38-126) U/L
Total Protein 6.8 6.4 (6.3-8.2) g/dl
Albumin 3.8 3.9 (3.5-5.0) g/dl
Vital Signs:
Vital Signs
Temp Pulse Resp BP Pulse Ox
98.1 F 67 16 152/70 94
02/06/25 07:00 02/06/25 07:24 02/06/25 07:24 02/06/25 07:00 02/06/25 07:24
I&O
02/05/25 02/06/25 02/07/25
06:59 06:59 06:59
Intake Total 670 / 670 540 / 540
Output Total 250 / 250
Balance 420 / 420 540 / 540
Weight - last 4 days
02/04/25 02/05/25 02/06/25 02/07/25
06:59 06:59 06:59 06:59
Actual Weight 83.053 kg 84.085 kg
Review of Systems
-
History Source: Patient
All other systems: Reviewed and negative
Physical Exam
-
General: Well Developed, Well Nourished, No Apparent Distress, Comfortable and Conversant
HEENT: Normocephalic, Atraumatic, Anicteric, No Ptosis, Nose Appears Normal, Ears Appear Normal, Oxygen (2 L) and Other (Hoarse voice)
Respiratory: Wheezes (Diffuse wheezes in all lung odom)
Cardiac: Regular Rhythm and S1/S2
GI: Soft, Nontender, Nondistended and Normal Bowel Sounds
Musculoskeletal: No Cyanosis, Edema, Right Lower Extrem (Edema to distal third of ankle bilaterally) and Edema, Left Lower Extrem
Skin: Warm and Dry
Neuro: Awake, Alert, Nonfocal/Grossly Intact and Central Nerve's Intact
Psych: Calm
--- NOTE | 2025-02-06 12:40 | W.PN.UPDATE ---
Addendum entered and electronically signed by Thomas Will MD 02/06/25 16:41:
Sepsis due to pneumonia with organ dysfunction of acute hypoxic respiratory failure
Original Note:
Update Note
Progress Note Update
I personally performed a history and physical exam of the patient and discussed management with the resident. I reviewed the resident's note and agree with the documented findings and plan of care HPI/CC.
Shortness of breath is improving.
Gen: NAD, AAOx3, appears chronically ill
Eyes: EOMI, PERRLA, no scleral icterus.
Neck: supple.
CV: RRR, +S1/S2, no m/r/g.
Resp: distant BS, otherwise CTAB, no rales, wheezes, or rhonchi.
Abd: +BS, soft, NT, ND
Skin: No rashes. 1-2+ B/L LE edema
Neuro: CN 2-12 intact, non-focal.
Psych: Normal mood and affect.
02/04/25 07:29 Sputum Respiratory Culture - Final
Usual Respiratory Lizette
02/04/25 07:29 Sputum Gram Stain - Final
02/04/25 16:30 Nasal Swab Influenza Types A & B (LEONCIO) - Final
Negative for Influenza A & B, NAAT
Negative results must be combined with clinical observations
and patient history.
Nucleic Acid Amplification test (NAAT)performed on the
[employer] platform.
02/03/25 22:39 Urine Legionella Urinary Antigen - Final
Negative for Legionella pneumophila Serogroup 1 antigen.
A negative result does not rule out the possiblity of
Legionella infection due to other serogroups or species of
Legionella. Clinical correlation is recommended.
02/03/25 22:39 Urine Streptococcus pneumoniae Antigen (M - Final
Negative for Streptococcus pneumoniae antigen.
A negative result does not exclude infection with
Streptococcus pneumoniae. Clinical correlation is
recommended.
CXR: Right lower lobe pneumonia.
Echo:
1. Ejection fraction is 70% by visual assessment.
2. Normal left ventricular size and systolic function.
3. Thickened and calcified aortic valve with normal leaflet excursion.
4. Moderate tricuspid regurgitation. Estimated pulmonary artery pressure of 55 mmHg assuming a right atrial pressure of 8 mmHg.
Acute hypoxemic respiratory failure:
-multifactorial due to RLL pneumonia (causing acute COPD Exac) and acute HFpEF
-was on 5L NC O2, now weaned to 2L NC O2
-COVID/Flu NEG
-cont Rocephin/Azithro
-cont Prednisone
-cont Symbicort/duonebs
-cont IV Lasix, daily wts, I/Os
New onset atrial fibrillation:
-cont Eliquis/BB
Hypervolemic hyponatremia:
-due to acute CHF and HCTZ (which has been stopped)
-improving
DNR/Eliquis
Total time spent on today's encounter was 50 minutes which included time spent in counseling the patient/family regarding diagnosis and treatment plan as listed above, goals of care, and symptom management. Case was discussed with nursing staff,
specialists, and care coordinators/case management. All labs and imaging personally reviewed by me. Remainder the time spent in detailed review of previous records, lab data, imaging, and other medical provider documentation.
--- NOTE | 2025-02-06 13:12 | W.PN.CARDCBS ---
Addendum entered and electronically signed by Ulysses Smith MD 02/06/25 14:07:
I saw and examined the patient.
The AGRICULTURAL EXTENSION SPECIALIST or PA's note was reviewed and I agree with the note.
Comment: General: Well developed, well nourished in NAD.
Neck: Supple, no JVD, HJR, carotids +2 B/L, no bruits bilaterally.
Heart: Non displaced PMI, Irreg, no murmurs, No S3, S4, no rubs.
Lungs: Scattered rhonchi,
Extremities: No clubbing, cyanosis or edema bilaterally.
Neuro: Grossly nonfocal, awake, alert and oriented x3.
Remains in rate controlled A-fib. Consider cardioversion as an outpatient. Continue to treat pneumonia and COPD. Has not diuresed on IV Lasix and remains on oxygen.
Original Note:
Today's Communication / Plan
-
No appreciable diuresis despite Lasix 40 mg IV BID and being loop diuretic na�ve on admission
EF preserved by echo
Remains in rate controlled A-fib, no plans for rhythm control
Impression / Plan
-
PCP: Dr. Fuentes
Cardiology: None
Impression:
Admitted with RLL PNA, acute HF and new A-fib 02/03/2025
RLL PNA
Acute HFpEF
Newly diagnosed paroxysmal atrial fibrillation of unclear duration
HTN
Emphysema/COPD
Former smoker
Hyponatremia
Echo 02/06/2025: EF 70%, normal LV size and function, thickened and calcified aortic valve with normal leaflet excursion, moderate TR with PAP 55 mmHg
Plan:
-Patient admitted with multifactorial hypoxia cardiology consulted for new diagnosis of A-fib and acute HF.
-Patient is being treated with Rocephin for RLL PNA
-No appreciable diuresis and weight remains stable at 185 lbs despite Lasix 40 mg IV BID. Patient was taking HCTZ 25 mg daily prior to admission, this is now on hold.
-EF preserved at 70% without significant valve disease on echo. proBNP was 1370 on admission, but CXR was most striking for PNA. Given lack of diuresis and preserved EF on echo it is not clear that patient is in acute HF and wonder if it could be
that the bulk of his symptoms are related to severe underlying lung disease and PNA.
-Patient was started on Toprol-XL 25 mg daily on admission and is tolerating all doses thus far without any increase in wheezing
-Outpatient dose of losartan 25 mg daily has been continued
-Patient was not taking SGLT2 inhibitor prior to admission, will hold off in the setting of active PNA and can explore this as an outpatient.
-Telemetry reviewed by me shows rate controlled A-fib, A-fib is a new diagnosis this admission
-Duration of A-fib is unclear as patient is asymptomatic. HR overall controlled and so is possible A-fib has been going on for some time. Regardless rate control with Toprol-XL as noted above.
-New to Eliquis 5 mg BID (age 79, Cre 0.9, wt 83 kg). Patient willing to continue with OAC and we reviewed stroke risk and bleeding risk and things to look for as a bleeding complication. Appreciate help of case management on checking cost, he can
use the free 30-day card and then it would be $116 a month thereafter
HPI:-Patient came to the ER last night from his PCPs office with LE edema and SOB for a week and was admitted with RLL PNA, acute HF and new A-fib prompting cardiology consultation. Patient sees his PCP at least twice a year and then as needed when
he is sick, patient reports that he and his both seem to have a cold but his was stable or getting better while he was only getting worse with symptoms of increasing SOB, edema and productive cough. In the PCP office there was some
concern for hypoxia and possible A-fib prompting referral to the ER. ECG in the ER looks like A-fib which is a new diagnosis and HR has been in the 90s without rate controlling medications. He denies any palpitations and no known history of A-fib.
He has never required OAC in the past. CXR in the ER confirmed RLL PNA and patient started on antibiotics. There was also some concern about acute HF and the proBNP was 1370 and patient was started on Lasix 40 mg IV daily and he reports increased
urine output and overall symptomatic improvement in SOB. Patient reports that LE edema appears to be acute on chronic and reports that within the last several months when his amlodipine dose was increased to 10 mg daily is when he first started to
notice increased edema. He is also chronically on HCTZ 25 mg daily and was noted to be hyponatremic on admission.
Progress Note - Exceptional Student Education Teacher
Subjective
Date of Service: February 06, 2025
He feels the same
Objective
Labs:
02/06/25 05:44
02/06/25 05:44
Labs
Hgb 15.3 g/dL (13.0-18.0) 02/06/25 05:44
Hct 44.1 % (39.0-52.0) 02/06/25 05:44
Plt Count 199 10^3/uL (130-400) 02/06/25 05:44
Sodium 132 mmol/L (135-145) L 02/06/25 05:44
Potassium 4.0 mmol/L (3.5-5.1) 02/06/25 05:44
BUN 31 mg/dl (9-20) H 02/06/25 05:44
Creatinine 0.9 mg/dL (0.7-1.3) 02/06/25 05:44
Glucose 94 mg/dl (70-99) 02/06/25 05:44
Vital Signs and I&O:
Vital Signs
Temp Pulse Resp BP Pulse Ox
98.1 F 67 16 152/70 93
02/06/25 07:00 02/06/25 07:24 02/06/25 07:24 02/06/25 07:00 02/06/25 10:06
Vital Signs
Temp Pulse Resp BP Pulse Ox
98.1 F 67 16 152/70 93
02/06/25 07:00 02/06/25 07:24 02/06/25 07:24 02/06/25 07:00 02/06/25 10:06
Intake & Output
02/04/25 02/05/25 02/06/25 02/07/25
06:59 06:59 06:59 06:59
Intake Total 240 / 240 670 / 670 540 / 540
Output Total 600 / 600 250 / 250
Balance -360 / -360 420 / 420 540 / 540
Physical Exam
Physical Exam
GEN: NAD, AAO x 3
HEENT: EOMI, MMM
LUNGS: 2 L NC. Dyspneic with conversation
CV: Rate controlled A-fib on telemetry.
EXT: +1-2 pitting B/L LE edema
--- NOTE | 2025-02-06 13:29 | CM ---
Patient is currently requiring 2 liters of oxygen, per patient he did not require oxygen prior to admission.
Plan To follow with patient progress, any oxygen needs at discharge.
--- NOTE | 2025-02-06 16:23 | PN.CDI ---
CDI
- -
CDI:
Physician Documentation Request
Admit Date: 02/03/25 20:[address] Gunter,
[facility] is using an adapted version of the 2016 Third International Consensus Definitions for Sepsis and Septic Shock (Sepsis-3) where sepsis is defined as life threatening organ dysfunction caused by a deregulated host response to infection.
Please reference the official [facility] Sepsis Recognition Tool for further information, which can be found on the Intranet under Infection Prevention.
Clinical Indicators Include:
Progress Notes: 02/06 'Acute hypoxemic respiratory failure:-multifactorial due to RLL pneumonia (causing acute COPD Exac) and acute HFpEF'
Treatment: Rocephin/azithromycin, was on 5 L,
Based on your medical judgment, can you further clarify the diagnosis being monitored/treated this admission?
� Sepsis due to pneumonia with organ dysfunction of acute hypoxic respiratory failure
� pneumonia only
� Other
� Clinically unable to determine
Use of terms such as suspected, likely, concern for, or probable (associated with a specific diagnosis that is being evaluated, monitored, or treated as if it exists) are acceptable and can be coded in the inpatient setting when documented at the
time of discharge.
Please use your independent medical judgement in providing your response.
Thank you,
Sarah Andino RN, BSN
CDI Specialist
tiger text
[2025-02-06] MEDS: STERILE WATER FOR INJECTION 10 ML IV (17:01)
[2025-02-06] MEDS: ROCEPHIN 1000 MG IV (17:01)
[2025-02-06] MEDS: TESSALON PERLES 200 MG PO ×2 (17:01→21:20)
[2025-02-06] MEDS: DUONEB 3 ML INH (20:27)
[2025-02-07] VITALS (8 sets, daily range): BP systolic 123–169; BP diastolic 64–92; PULSE 81–83; O2SAT 94; BMI 23.7
[2025-02-07] MEDS: COZAAR 50 MG PO (07:39)
[2025-02-07] MEDS: DELTASONE 40 MG PO (07:39)
[2025-02-07] MEDS: TOPROL XL 25 MG PO (07:39)
[2025-02-07] MEDS: ZITHROMAX 500 MG PO (07:39)
[2025-02-07] MEDS: ELIQUIS 5 MG PO ×2 (07:40→19:26)
[2025-02-07] MEDS: LASIX 40 MG IV (07:40)
[2025-02-07] MEDS: SYMBICORT 160/4.5 MCG INHALER 2 PUFF INH ×2 (08:01→19:18)
--- NOTE | 2025-02-07 10:14 | W.PN.UPDATE ---
Update Note
Progress Note Update
I saw and evaluated the patient. I reviewed the resident�s note and agree with findings and plan as documented in the resident�s note.
Gen: NAD, AAOx3, appears chronically ill
Eyes: EOMI, PERRLA, no scleral icterus.
Neck: supple.
CV: remains RRR, +S1/S2, no m/r/g.
Resp: remains distant BS, otherwise CTAB, no rales, wheezes, or rhonchi.
Abd: +BS, soft, NT, ND
Skin: No rashes. remains 1-2+ B/L LE edema
Neuro: CN 2-12 intact, non-focal.
Psych: Normal mood and affect.
02/04/25 07:29 Sputum Respiratory Culture - Final
Usual Respiratory Lizette
02/04/25 07:29 Sputum Gram Stain - Final
02/04/25 16:30 Nasal Swab Influenza Types A & B (LEONCIO) - Final
Negative for Influenza A & B, NAAT
Negative results must be combined with clinical observations
and patient history.
Nucleic Acid Amplification test (NAAT)performed on the
[employer] platform.
02/03/25 22:39 Urine Legionella Urinary Antigen - Final
Negative for Legionella pneumophila Serogroup 1 antigen.
A negative result does not rule out the possiblity of
Legionella infection due to other serogroups or species of
Legionella. Clinical correlation is recommended.
02/03/25 22:39 Urine Streptococcus pneumoniae Antigen (M - Final
Negative for Streptococcus pneumoniae antigen.
A negative result does not exclude infection with
Streptococcus pneumoniae. Clinical correlation is
recommended.
Acute hypoxemic respiratory failure:
-Sepsis due to pneumonia with organ dysfunction of acute hypoxic respiratory failure
-multifactorial due to RLL pneumonia (causing acute COPD Exac) and acute HFpEF
-was on 5L NC O2, now weaned to 1L NC O2
-COVID/Flu NEG
-cont Rocephin/Azithro
-cont Prednisone (40mg daily x 5 days)
-cont Symbicort/duonebs
-increase IV Lasix to 80mg IV BID as no appreciable diuresis, discussed with cards
-daily wts, I/Os
-RN instructed to titrate NC O2 to pulse ox 89-92%
New onset atrial fibrillation:
-cont Eliquis/BB
Hypervolemic hyponatremia:
-due to acute CHF and HCTZ (which has been stopped)
-improving
Family updated at bedside, RN updated.
DNR/Eliquis
[2025-02-07 11:03] LABS: Hematocrit 49.5 % (39.0-52.0); Hemoglobin 17.0 g/dL (13.0-18.0); Mean Corp Hgb Conc. 34.3 g/dL (33.0-37.0); Mean Corpuscular Volume 92.4 fL (80.0-94.0); Nucleated Red Blood Cells % 0 % (-); Platelet Count 252 10^3/uL (130-400); Red Cell Dist. Width 13.2 % (11.5-14.5)
[2025-02-07 11:08] LABS: ALT (SGPT) 87 U/L (0-50); AST (SGOT) 70 U/L (17-59); Albumin 4.4 g/dl (3.5-5.0); Alkaline Phosphatase 57 U/L (38-126); Blood Urea Nitrogen 31 mg/dl (9-20); Calcium 9.7 mg/dl (8.4-10.2); Chloride 90 mmol/L (98-107); Estimated Creatinine Clearance 74 ml/min; Glucose 97 mg/dl (70-99); Potassium 4.8 mmol/L (3.5-5.1); Sodium 134 mmol/L (135-145); Total Protein 7.4 g/dl (6.3-8.2); eGFR > 60.00
[2025-02-07 11:32] LABS: Carbon Dioxide 36 mmol/L (22-30)
[2025-02-07] MEDS: TESSALON PERLES 200 MG PO (11:32)
--- NOTE | 2025-02-07 12:56 | PTOTSP ---
pt currently requires supervision to no assistance to complete simple ADLs, functional transfers, ambulation. pt currently on 1LO2. education provided regarding energy conservation, autogenic breathing. pt verbalized and demonstrated understanding.
no acute OT needs identified at this time, will sign off.
--- NOTE | 2025-02-07 13:07 | W.PN.HOSP.TC ---
Today's Communication/Plan
-
Continuing to wean patient's nasal cannula O2.
Echo with 70% ejection fraction
Assessment / Plan
Assessment / Plan
Impression
Mr. Ulysses Duran is a 79-year-old with past medical history of COPD not on home O2, HTN, former tobacco dependence presenting to the emergency department with shortness of breath wheezing cough and found to have a right lower lobe infiltrate.
Evidently has COPD exacerbation in addition to walking pneumonia. He has lower extremity swelling and new onset atrial fibrillation with controlled rate.
HPI
Patient reports symptoms began about 1 week ago. He said that he started to wait upper respiratory symptoms such as sore throat and any cough. A few days later his developed similar symptoms but she got over it. He continued to have cough
that went from clear mucus to brown mucus. He started having dyspnea on exertion and shortness of breath. He denies any chest pain. He reported chills. He denied bossman fevers.
He denies any palpitations. He reports that when he lays down he does feel more short of breath due to increased cough production. Patient reports long history of intermittent lower extremity swelling. Initially said this was secondary to
amlodipine which he has been on for several years. He says his weight is around 185 pounds and it has not changed recently. He reports that the edema is dependent that he usually takes hydrochlorothiazide for it. He denies any history of recent
chest pain. He denies lightheadedness or dizziness.
ED course
In the emergency department patient was afebrile with a temp of 98.1, blood pressure was 161/100 with a pulse of 83 and he was satting as low as 85% on room air. ECG shows new onset atrial fibrillation at a rate of 94. Chest x-ray with a right
lower lobe infiltrate/pneumonia. BNP was elevated at 1370. He had leukocytosis with a white count of 15.7, hemoglobin and platelets were normal. Sodium was 130 electrolytes BUN and creatinine were all in the normal range with a glucose of 106.
Chest x-ray 02/03/2025: Right lower lobe pneumonia
Plan
Hypoxemic respiratory failure secondary to pneumonia in the setting of COPD exacerbation:
COPD
:: On admission he was afebrile with a temperature 98.1, blood pressure was 161/100, pulse 83, 85 on room air
:: Chest x-ray showed a right lower lobe infiltrate most likely right lower lobe pneumonia
:: Urine legionella and pneumococcal antigen test negative
- continue IV ceftriaxone (02/03/2025� ) and p.o. azithromycin (02/04/2025� )
- Continue 40 mg prednisone daily to reduce airflow inflammation, duonebs (standing) and symbicort to relieve inflammation and bronchoconstriction, and acapella/ incentive spirometry to open airways and clear mucous
- Tessalon pearls for cough
:: influenza and covid negative
- sputum cultures: Usual respiratory jayleen, not sufficient sample final
- On 0-1 L nasal cannula 02/06/2025. Wean as tolerated. Not on O2 at home
New onset paroxysmal atrial fibrillation:
:: Confirmed on EKG on admission 02/03/2025, no previous history
:: Admitted to telemetry
:: [id number] = 4
� Continue Eliquis 5 mg p.o. twice daily
- Continue with Toprol XL 25 mg for rate control
:: TSH normal
- Echocardiogram 02/06/2025: EF 70%, normal LV size and systolic function. Thickened and calcified aortic valve. Moderate tricuspid regurg. Estimated PA pressure 55 mmHg, assuming right atrial pressure 8 mmHg.
Cardiology following
� Consider steroid adjustment with worsening wheezing. Defer to primary service
Bilateral lower extremity edema with elevated BNP secondary to suspected unknowns type of heart failure
Hyponatremia secondary to hypervolemia?
Hypertension
:: hypervolemic given crackles, lower extremity edema, cough, and orthopnea.
� Fluid restriction 50 ounces per day
- Increased Lasix 40 mg IV daily to 40 mg IV BID as his weight has increased 1 kg since yesterday. His weight is 84 kg today from 83 kg yesterday.
- Echo pending
- Monitor weights, ins/outs, urine output.
� Continue TUG CAPTAIN losartan 25 mg p.o. daily
� Held amlodipine 10 mg p.o. daily due to lower extremity edema
- hctz held due to hyponatremia. Anticipate discontinuing due to increase side effects in older adults
Dysphagia to oral medications:
- speech recommendation: Regular diet
1. IDDSI 7 Regular solids, IDDSI 0 thin liquids
2. Medication as best tolerated (Pt prefers whole in applesauce)
3. Standard aspiration precautions
4. Aspiration risk factors present. At bedside pt managing regular solids and thin liquids with no overt s/sx of aspiration. 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 Please reconsult if concerned for aspiration or if worsening chest imaging/respiratory status.
DVT PPX - eliquis
Code status - DNR
Anticipated Discharge: 24 - 48 hours
Subjective/Interval History
-
Date of Service: February 07, 2025
No acute events overnight. Patient states his breathing continues to improve day by day.
Objective Data
-
Labs:
Microbiology Results - Entire Visit
02/07/25 00:50 Sputum Respiratory Culture - Final
02/07/25 00:50 Sputum Gram Stain - Final
02/04/25 07:29 Sputum Respiratory Culture - Final
Usual Respiratory Jayleen
02/04/25 07:29 Sputum Gram Stain - Final
02/04/25 16:30 Nasal Swab Influenza Types A & B ([facility]ONCIO) - Final
Negative for Influenza A & B, NAAT
Negative results must be combined with clinical observations
and patient history.
Nucleic Acid Amplification test (NAAT)performed on the
[employer] platform.
02/03/25 22:39 Urine Legionella Urinary Antigen - Final
Negative for Legionella pneumophila Serogroup 1 antigen.
A negative result does not rule out the possiblity of
Legionella infection due to other serogroups or species of
Legionella. Clinical correlation is recommended.
02/03/25 22:39 Urine Streptococcus pneumoniae Antigen (M - Final
Negative for Streptococcus pneumoniae antigen.
A negative result does not exclude infection with
Streptococcus pneumoniae. Clinical correlation is
recommended.
Hematology and Coagulation - Last 24 hours
02/07/25 Range/Units
10:35
WBC 14.5 H (4.8-10.8) 10^3/uL
RBC 5.36 (4.70-6.10) 10^6/uL
Hgb 17.0 (13.0-18.0) g/dL
Hct 49.5 (39.0-52.0) %
MCV 92.4 (80.0-94.0) fL
MCH 31.7 H (27.0-31.0) pg
MCHC 34.3 (33.0-37.0) g/dL
RDW 13.2 (11.5-14.5) %
Plt Count 252 D (130-400) 10^3/uL
MPV 10.3 (7.4-10.4) fL
Abs Immat Gran (auto) 0.2 H (0-0.05) 10^3/uL
Absolute Neuts (auto) 12.4 H (1.4-6.5) 10^3/uL
Absolute Lymphs (auto) 0.5 L (1.2-3.4) 10^3/uL
Absolute Monos (auto) 1.4 H (0.1-0.6) 10^3/uL
Absolute Eos (auto) 0.0 (0-0.7) 10^3/uL
Absolute Basos (auto) 0.1 (0-0.2) 10^3/uL
Immature Gran % 1.3 H (0-0.5) %
Neutrophils % 85.6 H (42.2-75.2) %
Lymphocytes % 3.1 L (20.5-51.1) %
Monocytes % 9.5 H (1.7-9.3) %
Eosinophils % 0.1 (0-6) %
Basophils % 0.4 (0-2) %
Nucleated RBC % 0 (-) %
Blood Gas and Chemistry - Last 24 hours
02/07/25 02/07/25 Range/Units
10:20 10:35
Sodium Cancelled 134 L
Potassium Cancelled 4.8
Chloride Cancelled 90 L
Carbon Dioxide Cancelled 36 H
BUN Cancelled 31 H
Creatinine Cancelled 0.9
Estimated Creat Clear Cancelled 74
eGFR Cancelled > 60.00
Glucose Cancelled 97
Calcium Cancelled 9.7
Total Bilirubin 1.9 H D (0.2-1.3) mg/dl
AST 70 H (17-59) U/L
ALT 87 H (0-50) U/L
Alkaline Phosphatase 57 (38-126) U/L
Total Protein 7.4 (6.3-8.2) g/dl
Albumin 4.4 (3.5-5.0) g/dl
Vital Signs:
Vital Signs
Temp Pulse Resp BP Pulse Ox
98.1 F 88 18 137/75 91
02/07/25 11:35 02/07/25 11:35 02/07/25 11:35 02/07/25 11:35 02/07/25 11:35
I&O
02/06/25 02/07/25 02/08/25
06:59 06:59 06:59
Intake Total 540 / 540
Balance 540 / 540
Review of Systems
-
History Source: Patient and Family
All other systems: Reviewed and negative
Physical Exam
-
General: Well Developed, Well Nourished, No Apparent Distress, Comfortable and Conversant
HEENT: Normocephalic, Atraumatic, Moist Mucous Membranes, Anicteric, No Ptosis, Nose Appears Normal, Ears Appear Normal and Oxygen (Patient was conversant and appeared comfortable on 0 L. When he was told he was on 3 L, he requested 1 L, so O2 was
increased to 1 L)
Respiratory: Clear to Auscultation and Wheezes (Minimal wheezing in the posterior right lung field, wheezing much decreased from yesterday)
Cardiac: Regular Rhythm and S1/S2
GI: Soft, Nontender, Nondistended and Normal Bowel Sounds
Musculoskeletal: No Clubbing, No Cyanosis, Edema, Right Lower Extrem and Edema, Left Lower Extrem
Skin: Warm and Dry
Neuro: Awake and Alert
Psych: Calm
--- NOTE | 2025-02-07 13:48 | CM ---
Chart reviewed, per physician Lasix have been increased to 80mg IV BID, new diagnosis of AFIB, patient was seen by physical therapy and occupational therapy, and they are recommending home no needs, patient is currently requiring one liter of
oxygen.
Plan; Home with spouse when stable.
--- NOTE | 2025-02-07 15:17 | W.PN.CARDCBS ---
Addendum entered and electronically signed by Ulysses Smith MD 02/07/25 15:40:
I saw and examined the patient.
The CATALYST RECOVERY OPERATOR or PA's note was reviewed and I agree with the note.
Comment: General: Well developed, well nourished in NAD.
Neck: Supple, no JVD, HJR, carotids +2 B/L, no bruits bilaterally.
Heart: Non displaced PMI, RRR, no murmurs, No S3, S4, no rubs.
Lungs: Crackles at the bases
Extremities: No clubbing, cyanosis or edema bilaterally.
Neuro: Grossly nonfocal, awake, alert and oriented x3.
He is a difficult examination but remains on oxygen. Discussed with primary service and IV Lasix will be increased. Will recheck proBNP. Continue to follow renal function with diuresis. Might consider eventual outpatient cardioversion. Unclear
if he will tolerate sedation at present.
Original Note:
Today's Communication / Plan
-
Lasix IV dose increased
Recheck proBNP
Follow BMP
Impression / Plan
-
PCP: Dr. Fuentes
Cardiology: None
Impression:
Admitted with RLL PNA, acute HF and new A-fib 02/03/2025
RLL PNA
Acute HFpEF
Newly diagnosed paroxysmal atrial fibrillation of unclear duration
HTN
Emphysema/COPD
Former smoker
Hyponatremia
Echo 02/06/2025: EF 70%, normal LV size and function, thickened and calcified aortic valve with normal leaflet excursion, moderate TR with PAP 55 mmHg
Plan:
-Patient admitted with multifactorial hypoxia cardiology consulted for new diagnosis of A-fib and acute HF.
-Patient is being treated with Rocephin and azithromycin for RLL PNA
-Patient was not taking a loop diuretic prior to admission, but he was taking HCTZ 25 mg daily. Patient diuresed with Lasix 40 mg IV BID initially and weight is overall down 6 lbs since admission.
-proBNP was only 1370 on admission, recheck proBNP now, ordered by me
-EF preserved at 70% without significant valve disease on echo.
-Patient was started on Toprol-XL 25 mg daily on admission and is tolerating all doses thus far without any increase in wheezing
-Outpatient dose of losartan increased to 50 mg daily this admission
-Outpatient dose of amlodipine 10 mg daily has been on hold, patient reports increase in LE edema as an outpatient prior to admission correlated with increased dose of amlodipine by his PCP to help control BP
-Patient was not taking SGLT2 inhibitor prior to admission, will hold off in the setting of active PNA and can explore this as an outpatient.
-Telemetry reviewed by me shows rate controlled A-fib, A-fib is a new diagnosis this admission
-Duration of A-fib is unclear as patient is asymptomatic. HR overall controlled with Toprol-XL as noted above.
-New to Eliquis 5 mg BID (age 79, Cre 0.9, wt 81 kg). Patient willing to continue with OAC and we reviewed stroke risk and bleeding risk and things to look for as a bleeding complication. Appreciate help of case management on checking cost, he can
use the free 30-day card and then it would be $116 a month thereafter
HPI:-Patient came to the ER last night from his PCPs office with LE edema and SOB for a week and was admitted with RLL PNA, acute HF and new A-fib prompting cardiology consultation. Patient sees his PCP at least twice a year and then as needed when
he is sick, patient reports that he and his both seem to have a cold but his was stable or getting better while he was only getting worse with symptoms of increasing SOB, edema and productive cough. In the PCP office there was some
concern for hypoxia and possible A-fib prompting referral to the ER. ECG in the ER looks like A-fib which is a new diagnosis and HR has been in the 90s without rate controlling medications. He denies any palpitations and no known history of A-fib.
He has never required OAC in the past. CXR in the ER confirmed RLL PNA and patient started on antibiotics. There was also some concern about acute HF and the proBNP was 1370 and patient was started on Lasix 40 mg IV daily and he reports increased
urine output and overall symptomatic improvement in SOB. Patient reports that LE edema appears to be acute on chronic and reports that within the last several months when his amlodipine dose was increased to 10 mg daily is when he first started to
notice increased edema. He is also chronically on HCTZ 25 mg daily and was noted to be hyponatremic on admission.
Progress Note - Engineering Specialist Technician
Subjective
Date of Service: February 07, 2025
Overall he feels better compared to admission
Objective
Labs:
02/07/25 10:35
02/07/25 10:35
Labs
Hgb 17.0 g/dL (13.0-18.0) 02/07/25 10:35
Hct 49.5 % (39.0-52.0) 02/07/25 10:35
Plt Count 252 10^3/uL (130-400) D 02/07/25 10:35
Sodium 134 mmol/L (135-145) L 02/07/25 10:35
Potassium 4.8 mmol/L (3.5-5.1) 02/07/25 10:35
BUN 31 mg/dl (9-20) H 02/07/25 10:35
Creatinine 0.9 mg/dL (0.7-1.3) 02/07/25 10:35
Glucose 97 mg/dl (70-99) 02/07/25 10:35
Vital Signs and I&O:
Vital Signs
Temp Pulse Resp BP Pulse Ox
98.1 F 88 18 137/75 91
02/07/25 11:35 02/07/25 11:35 02/07/25 11:35 02/07/25 11:35 02/07/25 11:35
Vital Signs
Temp Pulse Resp BP Pulse Ox
98.1 F 88 18 137/75 91
02/07/25 11:35 02/07/25 11:35 02/07/25 11:35 02/07/25 11:35 02/07/25 11:35
Intake & Output
02/05/25 02/06/25 02/07/25 02/08/25
06:59 06:59 06:59 06:59
Intake Total 670 / 670 540 / 540
Output Total 250 / 250
Balance 420 / 420 540 / 540
Physical Exam
Physical Exam
GEN: NAD, AAO x 3
HEENT: EOMI, MMM
LUNGS: 1 L NC. No audible wheeze
CV: Rate controlled A-fib on telemetry.
EXT: +1 pitting B/L LE edema
[2025-02-07] MEDS: LASIX 80 MG IV (16:52)
[2025-02-07] MEDS: ROCEPHIN 1000 MG IV (16:55)
[2025-02-07] MEDS: STERILE WATER FOR INJECTION 10 ML IV (16:55)
[2025-02-08] VITALS (7 sets, daily range): BP systolic 135–166; BP diastolic 69–79; PULSE 81; O2SAT 89; BMI 23.4
[2025-02-08] MEDS: SYMBICORT 160/4.5 MCG INHALER 2 PUFF INH ×2 (07:45→19:54)
[2025-02-08] MEDS: ELIQUIS 5 MG PO ×2 (08:10→19:48)
[2025-02-08] MEDS: COZAAR 50 MG PO (08:10)
[2025-02-08] MEDS: DELTASONE 40 MG PO (08:10)
[2025-02-08] MEDS: ZITHROMAX 500 MG PO (08:10)
[2025-02-08] MEDS: TOPROL XL 25 MG PO (08:10)
[2025-02-08] MEDS: LASIX 80 MG IV ×2 (08:10→17:19)
[2025-02-08 08:12] LABS: Hematocrit 47.2 % (39.0-52.0); Hemoglobin 16.4 g/dL (13.0-18.0); Mean Corp Hgb Conc. 34.7 g/dL (33.0-37.0); Mean Corpuscular Volume 94.0 fL (80.0-94.0); Platelet Count 321 10^3/uL (130-400); Red Cell Dist. Width 13.1 % (11.5-14.5)
[2025-02-08 08:43] LABS: Blood Urea Nitrogen 35 mg/dl (9-20); Calcium 9.3 mg/dl (8.4-10.2); Chloride 92 mmol/L (98-107); Estimated Creatinine Clearance 74 ml/min; Glucose 101 mg/dl (70-99); Potassium 4.3 mmol/L (3.5-5.1); Sodium 135 mmol/L (135-145); eGFR > 60.00
--- NOTE | 2025-02-08 09:00 | W.PN.HOSP.TC ---
Today's Communication/Plan
-
Patient's respiratory symptoms (shortness of breath/O2 requirement, cough) are improving, mild lower extremity edema persists. Lasix was doubled to 80 mg IV twice daily. Chest x-ray today demonstrated improving pneumonia.
Assessment / Plan
Assessment / Plan
Impression
Mr. Ulysses Duran is a 79-year-old with past medical history of COPD not on home O2, HTN, former tobacco dependence presenting to the emergency department with shortness of breath wheezing cough and found to have a right lower lobe infiltrate.
Evidently has COPD exacerbation in addition to walking pneumonia. He has lower extremity swelling and new onset atrial fibrillation with controlled rate.
HPI
Patient reports symptoms began about 1 week ago. He said that he started to wait upper respiratory symptoms such as sore throat and any cough. A few days later his developed similar symptoms but she got over it. He continued to have cough
that went from clear mucus to brown mucus. He started having dyspnea on exertion and shortness of breath. He denies any chest pain. He reported chills. He denied bossman fevers.
He denies any palpitations. He reports that when he lays down he does feel more short of breath due to increased cough production. Patient reports long history of intermittent lower extremity swelling. Initially said this was secondary to
amlodipine which he has been on for several years. He says his weight is around 185 pounds and it has not changed recently. He reports that the edema is dependent that he usually takes hydrochlorothiazide for it. He denies any history of recent
chest pain. He denies lightheadedness or dizziness.
ED course
In the emergency department patient was afebrile with a temp of 98.1, blood pressure was 161/100 with a pulse of 83 and he was satting as low as 85% on room air. ECG shows new onset atrial fibrillation at a rate of 94. Chest x-ray with a right
lower lobe infiltrate/pneumonia. BNP was elevated at 1370. He had leukocytosis with a white count of 15.7, hemoglobin and platelets were normal. Sodium was 130 electrolytes BUN and creatinine were all in the normal range with a glucose of 106.
Chest x-ray 02/03/2025: Right lower lobe pneumonia
Plan
Hypoxemic respiratory failure secondary to pneumonia in the setting of COPD exacerbation:
COPD
:: On admission he was afebrile with a temperature 98.1, blood pressure was 161/100, pulse 83, 85 on room air
:: CXR on admission: RLL lobe infiltrate, likely pneumonia. CXR 02/07/2025: persistent although improved patchy airspace opacities within the RLL, likely improving pneumonia.
:: Urine legionella and pneumococcal antigen test negative
- continue IV ceftriaxone (02/03/2025� ) and p.o. azithromycin (02/04/2025� )
- Continue 40 mg prednisone daily to reduce airflow inflammation, duonebs (standing) and symbicort to relieve inflammation and bronchoconstriction, and acapella/ incentive spirometry to open airways and clear mucous
- Tessalon pearls for cough
:: influenza and covid negative
- sputum cultures: Usual respiratory jayleen, not sufficient sample final
- On 0-1 L nasal cannula 02/06/2025. Wean as tolerated. Not on O2 at home
New onset paroxysmal atrial fibrillation:
:: Confirmed on EKG on admission 02/03/2025, no previous history. Admitted to telemetry
:: TSH normal
:: [id number] = 4
:: Duration of A-fib unclear as patient is asymptomatic
� Started Eliquis 5 mg p.o. twice daily. CM checked cost: 30-day free card, followed by $116 a month. Patient willing to continue on OAC
- Started Toprol XL 25 mg for rate control
- Echocardiogram 02/06/2025: EF 70%, normal LV size and systolic function. Thickened and calcified aortic valve. Moderate tricuspid regurg. Estimated PA pressure 55 mmHg, assuming right atrial pressure 8 mmHg.
Cardiology following
� Doubled Lasix IV to 80 mg twice daily. Increased bilateral ankle edema
� proBNP 1620. 1370 on admission
� Consider steroid adjustment with worsening wheezing. Defer to primary service
Bilateral lower extremity edema with elevated BNP secondary to suspected unknowns type of heart failure
Hyponatremia secondary to hypervolemia?
Hypertension
:: hypervolemic given crackles, lower extremity edema, cough, and orthopnea.
� Fluid restriction 50 ounces per day
- Increased Lasix 40 mg IV daily to 40 mg IV BID as his weight has increased 1 kg since yesterday. His weight is 84 kg today from 83 kg yesterday.
- Echo pending
- Monitor weights, ins/outs, urine output.
� Continue BUSINESS CONTINUITY STRATEGY DIRECTOR losartan 25 mg p.o. daily
� Held amlodipine 10 mg p.o. daily due to lower extremity edema
- hctz held due to hyponatremia. Anticipate discontinuing due to increase side effects in older adults
Dysphagia to oral medications:
- speech recommendation: Regular diet
1. IDDSI 7 Regular solids, IDDSI 0 thin liquids
2. Medication as best tolerated (Pt prefers whole in applesauce)
3. Standard aspiration precautions
4. Aspiration risk factors present. At bedside pt managing regular solids and thin liquids with no overt s/sx of aspiration. 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 Please reconsult if concerned for aspiration or if worsening chest imaging/respiratory status.
DVT PPX - eliquis
Code status - DNR
Anticipated Discharge: 24 - 48 hours
Subjective/Interval History
-
Date of Service: February 08, 2025
No acute events overnight. Patient states his breathing continues to feel better day by day. He states his cough is decreased.
He was on 1 L of O2. During our conversation this morning, we trialed him taking off the nasal cannula. He did not become short of breath during conversation.
He stated he desatted while walking under supervision yesterday as well as overnight. Overnight, he was asymptomatic. The nurse woke him up to have him put the oxygen back on.
Objective Data
-
Labs:
Laboratory Results
02/08/25
07:52
WBC 11.5 H
Hgb 16.4
Hct 47.2
Plt Count 321 D
Sodium 135
Potassium 4.3
Chloride 92 L
Carbon Dioxide Pending
BUN 35 H
Creatinine 0.9
Glucose 101 H
Calcium 9.3
Vital Signs:
Vital Signs
Temp Pulse Resp BP Pulse Ox
97.6 F 84 16 155/71 94
02/08/25 07:00 02/08/25 07:48 02/08/25 07:48 02/08/25 07:00 02/08/25 07:48
I&O
02/07/25 02/08/25 02/09/25
06:59 06:59 06:59
Intake Total 720 / 720
Balance 720 / 720
Review of Systems
-
History Source: Patient
All other systems: Reviewed and negative
Physical Exam
-
General: Well Developed, Well Nourished, No Apparent Distress, Comfortable and Conversant
HEENT: Normocephalic, Atraumatic, Anicteric, No Ptosis, Nose Appears Normal, Ears Appear Normal, Oxygen (Able to converse without oxygen without becoming short of breath) and Other (Hoarse voice)
Respiratory: Clear to Auscultation
Cardiac: Regular Rhythm and S1/S2
GI: Soft, Nontender, Nondistended and Normal Bowel Sounds
Musculoskeletal: No Clubbing, No Cyanosis, Edema, Right Lower Extrem (2+ pitting edema at the distal bilateral ankles, appear increased from prior days) and Edema, Left Lower Extrem
Skin: Warm and Dry
Neuro: Awake and Alert
Psych: Calm
--- NOTE | 2025-02-08 09:29 | W.PN.UPDATE ---
Update Note
Progress Note Update
I saw and evaluated the patient. I reviewed the resident�s note and agree with findings and plan as documented in the resident�s note.
Gen: NAD, AAOx3, appears chronically ill
Eyes: EOMI, PERRLA, no scleral icterus.
Neck: supple.
CV: continues to remain RRR, +S1/S2, no m/r/g.
Resp: distant BS, mild exp wheezes
Abd: +BS, soft, NT, ND
Skin: No rashes. 1+ B/L LE edema
Neuro: CN 2-12 intact, non-focal.
Psych: Normal mood and affect.
02/07/25 00:50 Sputum Respiratory Culture - Final
02/07/25 00:50 Sputum Gram Stain - Final
02/04/25 07:29 Sputum Respiratory Culture - Final
Usual Respiratory Lizette
02/04/25 07:29 Sputum Gram Stain - Final
02/04/25 16:30 Nasal Swab Influenza Types A & B ([facility]ONCIO) - Final
Negative for Influenza A & B, NAAT
Negative results must be combined with clinical observations
and patient history.
Nucleic Acid Amplification test (NAAT)performed on the
[employer] platform.
02/03/25 22:39 Urine Legionella Urinary Antigen - Final
Negative for Legionella pneumophila Serogroup 1 antigen.
A negative result does not rule out the possiblity of
Legionella infection due to other serogroups or species of
Legionella. Clinical correlation is recommended.
02/03/25 22:39 Urine Streptococcus pneumoniae Antigen (M - Final
Negative for Streptococcus pneumoniae antigen.
A negative result does not exclude infection with
Streptococcus pneumoniae. Clinical correlation is
recommended.
CXR 02/07: There are persistent although improved patchy airspace opacities within the right lower lung which are likely secondary to improving pneumonia.
Acute hypoxemic respiratory failure:
-Sepsis due to pneumonia with organ dysfunction of acute hypoxic respiratory failure
-multifactorial due to RLL pneumonia (causing acute COPD Exac) and acute HFpEF
-was on 5L NC O2, now weaned to RA
-COVID/Flu NEG
-cont Rocephin/Azithro
-cont Prednisone (40mg daily x 5 days)
-cont Symbicort/duonebs
-cont IV Lasix to 80mg IV BID, discussed with cards
-daily wts, I/Os
-check nocturnal pulse ox
New onset atrial fibrillation:
-cont Eliquis/BB
Hypervolemic hyponatremia:
-due to acute CHF and HCTZ (which has been stopped)
-resolved
Family updated at bedside
DNR/Eliquis
--- NOTE | 2025-02-08 10:36 | CM ---
Chart reviewed and employment evaluator/case manager met with patient this am along with spouse at bedside, oxygen needs will be reviewed, patient did not require oxygen prior to admission, employment evaluator/case manager reviewed visiting nurse services with patient and patient is
agreeable to [facility]. [facility] liaison contacted.
Plan; Home with [facility] when stable.
[2025-02-08 10:56] LABS: Carbon Dioxide 35 mmol/L (22-30)
--- NOTE | 2025-02-08 11:41 | VNURNOTE ---
Addendum entered by Candace Tim RN 02/09/25 11:54:
Chart reviewed. Patient qualified for new home . Faxed Rx and clinicals to [facility]. . [facility]. This author called his spouse and left message with 02 info.
Original Note:
Home Health Liaison met with patient and spouse at bedside to discuss [facility] nurse/therapy, visits, schedule and homebound status. Patient is agreeable and understands that visits at home will be 2-3 x per week to assess and teach medical
management. Patient [employer]. He confirmed that he has a scale at home. Patient and spouse are aware that [facility] will contact them for start of care within a few days after discharge from . Provided contact number for [facility].
[facility] referral completed in [facility].
--- NOTE | 2025-02-08 12:43 | W.PN.CARDCBS ---
Addendum entered and electronically signed by Kailash Reddy MD 02/08/25 14:20:
I saw and examined the patient.
The Academic Advisor's note was reviewed and I agree with the note.
Comment:
GEN: No distress, awake, Ox3
HEENT: supple, anicteric, mmm
LUNGS: bilat rhonchi
CV: Irreg, S1/S2, 1/6 syst LSB, no murmur
ABD: soft, BS+, NT/ND
EXT: +1 edema
NEURO: Gross non-focal
SKIN: No rash
PLan:
Volume status overall difficult to assess but weight is down. Will continue Lasix 80 mg IV twice daily for another 24 hours and then reassess. Creatinine stable at 0.9
Continue rate control strategy for A-fib. Continue treatments for pneumonia. Continue Eliquis.
Continue Toprol, Cozaar, and spironolactone
Continue ceftriaxone and azithromycin.
If remains in A-fib after treatment for pneumonia would consider SILVA cardioversion as outpatient.
.
Original Note:
Today's Communication / Plan
-
Persistent LE edema will try Tubigrip's, ordered by me
Continue with Lasix at higher dose, dry weight unknown
Continue with rate control and OAC for newly diagnosed A-fib
Start spironolactone 25 mg daily
Impression / Plan
-
PCP: Dr. Fuentes
Cardiology: None
Impression:
Admitted with RLL PNA, acute HF and new A-fib 02/03/2025
RLL PNA
Acute HFpEF
Newly diagnosed paroxysmal atrial fibrillation of unclear duration
HTN
Emphysema/COPD
Former smoker
Hyponatremia
Echo 02/06/2025: EF 70%, normal LV size and function, thickened and calcified aortic valve with normal leaflet excursion, moderate TR with PAP 55 mmHg
Plan:
-Patient admitted with multifactorial hypoxia cardiology consulted for new diagnosis of A-fib and acute HF.
-Patient is being treated with Rocephin and azithromycin for RLL PNA
-Weight is down 8 lbs this admission. Dry weight not clear. Patient weighs 177 lbs on 02/08/2025.
-Patient was not taking a loop diuretic prior to admission, but he was taking HCTZ 25 mg daily. Diuresed initially with Lasix 40 mg IV BID, but then increased to 80 mg IV BID by hospitalist attending on 02/07/2025.
-Cre stable at 0.9 and no evidence of hypotension on my review of labs and VS 02/08/2025
-proBNP was only 1370 on admission and then trended up to 1620 on recheck 02/07/2025
-EF preserved at 70% without significant valve disease on echo.
-Patient was started on Toprol-XL 25 mg daily on admission and is tolerating all doses thus far without any increase in wheezing
-Outpatient dose of losartan increased to 50 mg daily this admission
-Outpatient dose of amlodipine 10 mg daily has been on hold, patient reports increase in LE edema as an outpatient prior to admission correlated with increased dose of amlodipine by his PCP to help control BP
-Will add spironolactone 25 mg daily on 02/08/2025, orders placed by me
-Patient was not taking SGLT2 inhibitor prior to admission, will hold off in the setting of active PNA and can explore this as an outpatient.
-Telemetry reviewed by me shows rate controlled A-fib, A-fib is a new diagnosis this admission
-Duration of A-fib is unclear as patient is asymptomatic. HR overall controlled with Toprol-XL as noted above.
-New to Eliquis 5 mg BID (age 79, Cre 0.9, wt 81 kg). Patient willing to continue with OAC and we reviewed stroke risk and bleeding risk and things to look for as a bleeding complication. Appreciate help of case management on checking cost, he can
use the free 30-day card and then it would be $116 a month thereafter
-Patient remains hypoxic and on 1 L nasal cannula, patient was not using supplemental oxygen prior to admission. Overall oxygen requirements have improved, he initially required 4 to 5 L on admission. Patient is hoping to go home without
supplemental oxygen.
-Patient has a diagnosis of emphysema and COPD but does not follow with a internal wholesaler
HPI:-Patient came to the ER last night from his PCPs office with LE edema and SOB for a week and was admitted with RLL PNA, acute HF and new A-fib prompting cardiology consultation. Patient sees his PCP at least twice a year and then as needed when
he is sick, patient reports that he and his both seem to have a cold but his was stable or getting better while he was only getting worse with symptoms of increasing SOB, edema and productive cough. In the PCP office there was some
concern for hypoxia and possible A-fib prompting referral to the ER. ECG in the ER looks like A-fib which is a new diagnosis and HR has been in the 90s without rate controlling medications. He denies any palpitations and no known history of A-fib.
He has never required OAC in the past. CXR in the ER confirmed RLL PNA and patient started on antibiotics. There was also some concern about acute HF and the proBNP was 1370 and patient was started on Lasix 40 mg IV daily and he reports increased
urine output and overall symptomatic improvement in SOB. Patient reports that LE edema appears to be acute on chronic and reports that within the last several months when his amlodipine dose was increased to 10 mg daily is when he first started to
notice increased edema. He is also chronically on HCTZ 25 mg daily and was noted to be hyponatremic on admission.
Progress Note - X Ray Physician
Subjective
Date of Service: February 08, 2025
He feels well, denies palpitation
Objective
Labs:
02/08/25 07:52
02/08/25 07:52
Labs
Hgb 16.4 g/dL (13.0-18.0) 02/08/25 07:52
Hct 47.2 % (39.0-52.0) 02/08/25 07:52
Plt Count 321 10^3/uL (130-400) D 02/08/25 07:52
Sodium 135 mmol/L (135-145) 02/08/25 07:52
Potassium 4.3 mmol/L (3.5-5.1) 02/08/25 07:52
BUN 35 mg/dl (9-20) H 02/08/25 07:52
Creatinine 0.9 mg/dL (0.7-1.3) 02/08/25 07:52
Glucose 101 mg/dl (70-99) H 02/08/25 07:52
Vital Signs and I&O:
Vital Signs
Temp Pulse Resp BP Pulse Ox
97.3 F 84 18 150/70 91
02/08/25 11:00 02/08/25 11:00 02/08/25 11:00 02/08/25 11:00 02/08/25 11:00
Vital Signs
Temp Pulse Resp BP Pulse Ox
97.3 F 84 18 150/70 91
02/08/25 11:00 02/08/25 11:00 02/08/25 11:00 02/08/25 11:00 02/08/25 11:00
Intake & Output
02/06/25 02/07/25 02/08/25 02/09/25
06:59 06:59 06:59 06:59
Intake Total 540 / 540 720 / 720
Balance 540 / 540 720 / 720
Physical Exam
Physical Exam
GEN: NAD, AAO x 3
HEENT: EOMI, MMM
LUNGS: 1 L NC. No audible wheeze
CV: Rate controlled A-fib on telemetry.
EXT: +1 pitting B/L LE edema
[2025-02-08] MEDS: ALDACTONE 25 MG PO (14:15)
[2025-02-08] MEDS: ROCEPHIN 1000 MG IV (17:24)
[2025-02-08] MEDS: STERILE WATER FOR INJECTION 10 ML IV (17:25)
[2025-02-09 03:11] VITALS: BP 136/78
[2025-02-09 06:00] VITALS: BMI 23.0
[2025-02-09 07:00] LABS: Hematocrit 49.6 % (39.0-52.0); Hemoglobin 16.8 g/dL (13.0-18.0); Mean Corp Hgb Conc. 33.9 g/dL (33.0-37.0); Mean Corpuscular Volume 92.5 fL (80.0-94.0); Platelet Count 276 10^3/uL (130-400); Red Cell Dist. Width 13.3 % (11.5-14.5)
[2025-02-09 07:16] LABS: Blood Urea Nitrogen 40 mg/dl (9-20); Calcium 9.4 mg/dl (8.4-10.2); Carbon Dioxide 37 mmol/L (22-30); Chloride 92 mmol/L (98-107); Estimated Creatinine Clearance 66 ml/min; Glucose 98 mg/dl (70-99); Potassium 3.5 mmol/L (3.5-5.1); Sodium 135 mmol/L (135-145); eGFR > 60.00
[2025-02-09 08:00] VITALS: BP 154/84
[2025-02-09] MEDS: SYMBICORT 160/4.5 MCG INHALER 2 PUFF INH ×2 (08:07→19:44)
[2025-02-09] MEDS: ELIQUIS 5 MG PO ×2 (08:42→19:58)
[2025-02-09] MEDS: ZITHROMAX 500 MG PO (08:42)
[2025-02-09] MEDS: DELTASONE 40 MG PO (08:42)
[2025-02-09] MEDS: COZAAR 50 MG PO (08:42)
[2025-02-09] MEDS: TOPROL XL 25 MG PO (08:43)
[2025-02-09] MEDS: LASIX 80 MG IV ×2 (08:43→17:28)
[2025-02-09] MEDS: ALDACTONE 25 MG PO (08:43)
--- NOTE | 2025-02-09 09:30 | W.PN.HOSP.TC ---
Today's Communication/Plan
-
Monitor creatinine for another day on increased IV Lasix.
Nocturnal pulse oximetry demonstrated desaturation. Patient requires 2 L of nocturnal O2.
Patient requires oxygen at 1 LPM nasal canula continuously due to pulse ox of 85% room air at rest. Oxygen will help to improve hypoxemia. Patient is mobile within the home. Dubonev therapy has been tried and is ineffective in treating
hypoxemia-related symptoms. Oxygen is needed to improve symptoms
Assessment / Plan
Assessment / Plan
Impression
Mr. Ulysses Duran is a 79-year-old with past medical history of COPD not on home O2, HTN, former tobacco dependence presenting to the emergency department with shortness of breath wheezing cough and found to have a right lower lobe infiltrate.
Evidently has COPD exacerbation in addition to walking pneumonia. He has lower extremity swelling and new onset atrial fibrillation with controlled rate.
HPI
Patient reports symptoms began about 1 week ago. He said that he started to wait upper respiratory symptoms such as sore throat and any cough. A few days later his developed similar symptoms but she got over it. He continued to have cough
that went from clear mucus to brown mucus. He started having dyspnea on exertion and shortness of breath. He denies any chest pain. He reported chills. He denied bossman fevers.
He denies any palpitations. He reports that when he lays down he does feel more short of breath due to increased cough production. Patient reports long history of intermittent lower extremity swelling. Initially said this was secondary to
amlodipine which he has been on for several years. He says his weight is around 185 pounds and it has not changed recently. He reports that the edema is dependent that he usually takes hydrochlorothiazide for it. He denies any history of recent
chest pain. He denies lightheadedness or dizziness.
ED course
In the emergency department patient was afebrile with a temp of 98.1, blood pressure was 161/100 with a pulse of 83 and he was satting as low as 85% on room air. ECG shows new onset atrial fibrillation at a rate of 94. Chest x-ray with a right
lower lobe infiltrate/pneumonia. BNP was elevated at 1370. He had leukocytosis with a white count of 15.7, hemoglobin and platelets were normal. Sodium was 130 electrolytes BUN and creatinine were all in the normal range with a glucose of 106.
Chest x-ray 02/03/2025: Right lower lobe pneumonia
Plan
Hypoxemic respiratory failure secondary to pneumonia in the setting of COPD exacerbation:
COPD
:: On admission he was afebrile with a temperature 98.1, blood pressure was 161/100, pulse 83, 85 on room air
:: CXR on admission: RLL lobe infiltrate, likely pneumonia. CXR 02/07/2025: persistent although improved patchy airspace opacities within the RLL, likely improving pneumonia.
:: Urine legionella and pneumococcal antigen test negative
- continue IV ceftriaxone (02/03/2025� ) and p.o. azithromycin (02/04/2025� )
- Continue 40 mg prednisone daily to reduce airflow inflammation, duonebs (standing) and symbicort to relieve inflammation and bronchoconstriction, and acapella/ incentive spirometry to open airways and clear mucous
- Tessalon pearls for cough
:: influenza and covid negative
- sputum cultures: Usual respiratory jayleen, not sufficient sample final
- Weaned O2 nasal cannula 02/09/2025. Scratched not on O2 at home
� Nocturnal pulse ox demonstrated desaturation for a total of 6 hours. Patient requires 2 L nocturnal O2
- Patient requires oxygen at 1 LPM nasal canula continuously due to pulse ox of 85% room air at rest. Oxygen will help to improve hypoxemia. Patient is mobile within the home. Dubonev therapy has been tried and is ineffective in treating
hypoxemia-related symptoms. Oxygen is needed to improve symptoms
New onset paroxysmal atrial fibrillation:
:: Confirmed on EKG on admission 02/03/2025, no previous history. Admitted to telemetry
:: TSH normal
:: [id number] = 4
:: Duration of A-fib unclear as patient is asymptomatic
� Started Eliquis 5 mg p.o. twice daily. CM checked cost: 30-day free card, followed by $116 a month. Patient willing to continue on OAC
- Started Toprol XL 25 mg for rate control
- Echocardiogram 02/06/2025: EF 70%, normal LV size and systolic function. Thickened and calcified aortic valve. Moderate tricuspid regurg. Estimated PA pressure 55 mmHg, assuming right atrial pressure 8 mmHg.
Cardiology following
� Doubled Lasix IV to 80 mg twice daily. Increased bilateral ankle edema
� proBNP 1620. 1370 on admission
� Consider steroid adjustment with worsening wheezing. Defer to primary service
Bilateral lower extremity edema with elevated BNP secondary to suspected unknowns type of heart failure
Hyponatremia secondary to hypervolemia?
Hypertension
:: hypervolemic given crackles, lower extremity edema, cough, and orthopnea.
� Fluid restriction 50 ounces per day
- Increased Lasix 40 mg IV daily to 40 mg IV BID as his weight has increased 1 kg since yesterday. His weight is 84 kg today from 83 kg yesterday.
- Echo pending
- Monitor weights, ins/outs, urine output.
� Continue DIABETES CLINICAL MANAGER losartan 25 mg p.o. daily
� Held amlodipine 10 mg p.o. daily due to lower extremity edema
- hctz held due to hyponatremia. Anticipate discontinuing due to increase side effects in older adults
Dysphagia to oral medications:
- speech recommendation: Regular diet
1. IDDSI 7 Regular solids, IDDSI 0 thin liquids
2. Medication as best tolerated (Pt prefers whole in applesauce)
3. Standard aspiration precautions
4. Aspiration risk factors present. At bedside pt managing regular solids and thin liquids with no overt s/sx of aspiration. DULITE MACHINE BLUER s/o. Please reconsult if concerned for aspiration or if worsening chest imaging/respiratory status.
DVT PPX - eliquis
Code status - DNR
Anticipated Discharge: Within 24 hours
Subjective/Interval History
-
Date of Service: February 09, 2025
No acute events overnight. Patient had no complaints. Patient feels his breathing has been good all day yesterday today on room air. He does some endorse dyspnea on exertion. He continues to have productive cough, but denies constitutional
symptoms of infection. He is finds his bilateral pedal edema to be decreased.
Objective Data
-
Labs:
Laboratory Results
02/09/25
06:09
WBC 11.3 H
Hgb 16.8
Hct 49.6
Plt Count 276
Sodium 135
Potassium 3.5
Chloride 92 L
Carbon Dioxide 37 H
BUN 40 H
Creatinine 1.0
Glucose 98
Calcium 9.4
Vital Signs:
Vital Signs
Temp Pulse Resp BP Pulse Ox
99 F 102 18 154/84 90
02/09/25 08:00 02/09/25 08:09 02/09/25 08:09 02/09/25 08:00 02/09/25 08:09
I&O
02/08/25 02/09/25 02/10/25
06:59 06:59 06:59
Intake Total 720 / 720 1200 / 1200
Output Total 745 / 745
Balance 720 / 720 455 / 455
Review of Systems
-
History Source: Patient
All other systems: Reviewed and negative
Physical Exam
-
General: Well Developed, Well Nourished, No Apparent Distress, Comfortable and Conversant
HEENT: Normocephalic, Atraumatic, Anicteric, No Ptosis, Nose Appears Normal and Ears Appear Normal; Negative Oxygen
Respiratory: Clear to Auscultation
Cardiac: S1/S2 and Irregular Rhythm
GI: Soft, Nontender, Nondistended and Normal Bowel Sounds
Musculoskeletal: No Clubbing, No Cyanosis, Edema, Right Lower Extrem (Bilateral edema to upper ankles decreased from yesterday) and Edema, Left Lower Extrem
Skin: Warm and Dry
Neuro: Awake and Alert
Psych: Calm
--- NOTE | 2025-02-09 09:54 | W.PN.CARDCBS ---
Today's Communication / Plan
-
Wt continues to come down with increased lasix 80 mg IV BID
Cr stable
Cont GDMT for HFpEF including Toprol, Cozaar, and spironolactone
Can consider SGLT2 inhibitor as outpatient given his current infection.
EF preserved at 70% without significant valve disease on echo.
Continue rate control strategy for A-fib in setting of pneumonia.
Continue Eliquis; Appreciate help of case management on checking cost, he can use the free 30-day card and then it would be $116 a month thereafter
If remains in A-fib after treatment for pneumonia, would consider SILVA cardioversion as outpatient.
Impression / Plan
-
.
PCP: Dr. Fuentes
Cardiology: None
Impression:
Admitted with RLL PNA, acute HF and new A-fib 02/03/2025
RLL PNA
Acute HFpEF
Newly diagnosed paroxysmal atrial fibrillation of unclear duration
HTN
Emphysema/COPD
Former smoker
Hyponatremia
Echo 02/06/2025: EF 70%, normal LV size and function, thickened and calcified aortic valve with normal leaflet excursion, moderate TR with PAP 55 mmHg
Plan:
Multifactorial dyspnea with acute respiratory failure from right lower lobe pneumonia, acute heart failure and newly diagnosed atrial fibrillation February 03, 2025
Wt continues to come down with increased lasix 80 mg IV BID
Cr stable
Cont GDMT for HFpEF including Toprol, Cozaar, and spironolactone
Can consider SGLT2 inhibitor as outpatient given his current infection.
EF preserved at 70% without significant valve disease on echo.
Continue rate control strategy for A-fib in setting of pneumonia.
Continue Eliquis; Appreciate help of case management on checking cost, he can use the free 30-day card and then it would be $116 a month thereafter
If remains in A-fib after treatment for pneumonia, would consider SILVA cardioversion as outpatient.
Cont pulm toilet with abx, ceftriaxone and azithromycin.
nocturnal pulse ox per primary service
Patient has a diagnosis of emphysema and COPD but does not follow with a certified surgical first assistant
Discussed with primary service
HPI:-Patient came to the ER last night from his PCPs office with LE edema and SOB for a week and was admitted with RLL PNA, acute HF and new A-fib prompting cardiology consultation. Patient sees his PCP at least twice a year and then as needed when
he is sick, patient reports that he and his both seem to have a cold but his was stable or getting better while he was only getting worse with symptoms of increasing SOB, edema and productive cough. In the PCP office there was some
concern for hypoxia and possible A-fib prompting referral to the ER. ECG in the ER looks like A-fib which is a new diagnosis and HR has been in the 90s without rate controlling medications. He denies any palpitations and no known history of A-fib.
He has never required OAC in the past. CXR in the ER confirmed RLL PNA and patient started on antibiotics. There was also some concern about acute HF and the proBNP was 1370 and patient was started on Lasix 40 mg IV daily and he reports increased
urine output and overall symptomatic improvement in SOB. Patient reports that LE edema appears to be acute on chronic and reports that within the last several months when his amlodipine dose was increased to 10 mg daily is when he first started to
notice increased edema. He is also chronically on HCTZ 25 mg daily and was noted to be hyponatremic on admission.
Progress Note - Interactive Media Marketing Director
Subjective
Date of Service: February 09, 2025
Pt seen and examined. No complaints. No chest pain or shortness of breath.
Objective
Labs:
02/09/25 06:09
02/09/25 06:09
Labs
Hgb 16.8 g/dL (13.0-18.0) 02/09/25 06:09
Hct 49.6 % (39.0-52.0) 02/09/25 06:09
Plt Count 276 10^3/uL (130-400) 02/09/25 06:09
Sodium 135 mmol/L (135-145) 02/09/25 06:09
Potassium 3.5 mmol/L (3.5-5.1) 02/09/25 06:09
BUN 40 mg/dl (9-20) H 02/09/25 06:09
Creatinine 1.0 mg/dL (0.7-1.3) 02/09/25 06:09
Glucose 98 mg/dl (70-99) 02/09/25 06:09
Vital Signs and I&O:
Vital Signs
Temp Pulse Resp BP Pulse Ox
99 F 102 18 154/84 90
02/09/25 08:00 02/09/25 08:09 02/09/25 08:09 02/09/25 08:00 02/09/25 08:09
Vital Signs
Temp Pulse Resp BP Pulse Ox
99 F 102 18 154/84 90
02/09/25 08:00 02/09/25 08:09 02/09/25 08:09 02/09/25 08:00 02/09/25 08:09
Intake & Output
02/07/25 02/08/25 02/09/25 02/10/25
06:59 06:59 06:59 06:59
Intake Total 720 / 720 1200 / 1200
Output Total 745 / 745
Balance 720 / 720 455 / 455
Physical Exam
Physical Exam
General: No acute distress, AAOX3
Neck: Negative JVD
Heart: Irregularly irregular, Negative S3 positive S1/S2, Negative S4, No murmur
Lungs: Mild exp wheezes. negative rales/rhonchi
Abd: Positive BS, NT/ND, neg rebound/rigidity/guarding
Ext: Negative cyanosis/clubbing/edema
Neuro: nonfocal
--- NOTE | 2025-02-09 11:25 | W.PN.UPDATE ---
Update Note
Progress Note Update
I saw and evaluated the patient. I reviewed the resident�s note and agree with findings and plan as documented in the resident�s note.
No new complaints.
Gen: NAD, AAOx3, appears chronically ill
Eyes: EOMI, PERRLA, no scleral icterus.
Neck: supple.
CV: RRR, +S1/S2, no m/r/g.
Resp: distant BS, very mild exp wheezes
Abd: +BS, soft, NT, ND
Skin: No rashes. 1+ B/L ankle LE edema
Neuro: CN 2-12 intact, non-focal.
Psych: Normal mood and affect.
02/07/25 00:50 Sputum Respiratory Culture - Final
02/07/25 00:50 Sputum Gram Stain - Final
02/04/25 07:29 Sputum Respiratory Culture - Final
Usual Respiratory Lizette
02/04/25 07:29 Sputum Gram Stain - Final
02/04/25 16:30 Nasal Swab Influenza Types A & B (LEONCIO) - Final
Negative for Influenza A & B, NAAT
Negative results must be combined with clinical observations
and patient history.
Nucleic Acid Amplification test (NAAT)performed on the
[employer] platform.
02/03/25 22:39 Urine Legionella Urinary Antigen - Final
Negative for Legionella pneumophila Serogroup 1 antigen.
A negative result does not rule out the possibility of
Legionella infection due to other serogroups or species of
Legionella. Clinical correlation is recommended.
02/03/25 22:39 Urine Streptococcus pneumoniae Antigen (M - Final
Negative for Streptococcus pneumoniae antigen.
A negative result does not exclude infection with
Streptococcus pneumoniae. Clinical correlation is
recommended.
CXR 02/07: There are persistent although improved patchy airspace opacities within the right lower lung which are likely secondary to improving pneumonia.
Acute hypoxemic respiratory failure:
-Sepsis due to pneumonia with organ dysfunction of acute hypoxic respiratory failure
-multifactorial due to RLL pneumonia (causing acute COPD Exac) and acute HFpEF
-was on 5L NC O2, now weaned to 1L NC O2
-COVID/Flu NEG
-cont Rocephin/Azithro
-completed 6 days Prednisone 40mg daily
-cont Symbicort/duonebs
-cont IV Lasix to 80mg IV BID, discussed with cards
-daily wts (wt decreasing), I/Os
-nocturnal pulse ox noted, 6 hours below 89%, qualifies for nocturnal O2 2L/min. Also qualifies for 1L/min NC O2 during the day.
New onset atrial fibrillation:
-cont Eliquis/BB
Hypervolemic hyponatremia:
-due to acute CHF and HCTZ (which has been stopped)
-resolved
Discussed with DM.
DNR/Eliquis
Total time spent on today's encounter was 50 minutes which included time spent in counseling the patient/family regarding diagnosis and treatment plan as listed above, goals of care, and symptom management. Case was discussed with nursing staff,
specialists, and care coordinators/case management. All labs and imaging personally reviewed by me. Remainder the time spent in detailed review of previous records, lab data, imaging, and other medical provider documentation.
[2025-02-09 11:26] VITALS: BP 152/75
--- NOTE | 2025-02-09 15:15 | CM ---
Patient seen at bedside on . Patient states that he is expecting the home O2 delivery and anticipates discharge tomorrow. Patient was given IMM and he indicated that CM should review form with his tomorrow as he does not have any voice
and it is difficult for him to talk at this time. CM will continue to follow for discharge planning needs.
Plan; home with [facility] and home O2 from [employer]
[2025-02-09 15:25] VITALS: BP 153/87
--- NOTE | 2025-02-09 16:29 | VNURNOTE ---
Confirmed patient rec'ed portable 02 at bedside from [facility].
[2025-02-09] MEDS: STERILE WATER FOR INJECTION 10 ML IV (17:30)
[2025-02-09] MEDS: ROCEPHIN 1000 MG IV (17:30)
[2025-02-09 20:52] VITALS: BP 132/61
[2025-02-09 23:43] VITALS: BP 159/89
[2025-02-10 04:05] VITALS: BP 147/88
[2025-02-10 05:32] VITALS: BMI 22.6
[2025-02-10 07:25] LABS: Hematocrit 46.5 % (39.0-52.0); Hemoglobin 15.4 g/dL (13.0-18.0); Mean Corp Hgb Conc. 33.1 g/dL (33.0-37.0); Mean Corpuscular Volume 93.6 fL (80.0-94.0); Platelet Count 257 10^3/uL (130-400); Red Cell Dist. Width 13.2 % (11.5-14.5)
[2025-02-10 08:00] LABS: Blood Urea Nitrogen 47 mg/dl (9-20); Calcium 9.1 mg/dl (8.4-10.2); Chloride 96 mmol/L (98-107); Estimated Creatinine Clearance 65 ml/min; Glucose 90 mg/dl (70-99); Sodium 141 mmol/L (135-145); eGFR > 60.00
[2025-02-10] MEDS: COZAAR 50 MG PO (08:00)
[2025-02-10] MEDS: ZITHROMAX 500 MG PO (08:00)
[2025-02-10] MEDS: ELIQUIS 5 MG PO (08:00)
[2025-02-10] MEDS: TOPROL XL 25 MG PO (08:01)
[2025-02-10] MEDS: ALDACTONE 25 MG PO (08:03)
[2025-02-10] MEDS: LASIX 80 MG IV (08:03)
[2025-02-10] MEDS: SYMBICORT 160/4.5 MCG INHALER 2 PUFF INH (08:05)
[2025-02-10 08:09] LABS: Carbon Dioxide 39 mmol/L (22-30); Potassium 4.2 mmol/L (3.5-5.1)
[2025-02-10 08:53] VITALS: BP 156/86
--- NOTE | 2025-02-10 09:36 | W.PN.HOSP.TC ---
Today's Communication/Plan
-
Discharging the patient on 60 mg of Lasix p.o. daily and spironolactone 25 mg p.o. daily. Provide instructions to get a BMP in 1 week
Assessment / Plan
Assessment / Plan
Impression
Mr. Ulysses Duran is a 79-year-old with past medical history of COPD not on home O2, HTN, former tobacco dependence presenting to the emergency department with shortness of breath wheezing cough and found to have a right lower lobe infiltrate.
Evidently has COPD exacerbation in addition to walking pneumonia. He has lower extremity swelling and new onset atrial fibrillation with controlled rate.
HPI
Patient reports symptoms began about 1 week ago. He said that he started to wait upper respiratory symptoms such as sore throat and any cough. A few days later his developed similar symptoms but she got over it. He continued to have cough
that went from clear mucus to brown mucus. He started having dyspnea on exertion and shortness of breath. He denies any chest pain. He reported chills. He denied bossman fevers.
He denies any palpitations. He reports that when he lays down he does feel more short of breath due to increased cough production. Patient reports long history of intermittent lower extremity swelling. Initially said this was secondary to
amlodipine which he has been on for several years. He says his weight is around 185 pounds and it has not changed recently. He reports that the edema is dependent that he usually takes hydrochlorothiazide for it. He denies any history of recent
chest pain. He denies lightheadedness or dizziness.
ED course
In the emergency department patient was afebrile with a temp of 98.1, blood pressure was 161/100 with a pulse of 83 and he was satting as low as 85% on room air. ECG shows new onset atrial fibrillation at a rate of 94. Chest x-ray with a right
lower lobe infiltrate/pneumonia. BNP was elevated at 1370. He had leukocytosis with a white count of 15.7, hemoglobin and platelets were normal. Sodium was 130 electrolytes BUN and creatinine were all in the normal range with a glucose of 106.
Chest x-ray 02/03/2025: Right lower lobe pneumonia
Plan
Hypoxemic respiratory failure secondary to pneumonia in the setting of COPD exacerbation:
COPD
:: On admission he was afebrile with a temperature 98.1, blood pressure was 161/100, pulse 83, 85 on room air
:: CXR on admission: RLL lobe infiltrate, likely pneumonia. CXR 02/07/2025: persistent although improved patchy airspace opacities within the RLL, likely improving pneumonia.
:: Urine legionella and pneumococcal antigen test negative
- continue IV ceftriaxone (02/03/2025� ) and p.o. azithromycin (02/04/2025� )
- Continue 40 mg prednisone daily to reduce airflow inflammation, duonebs (standing) and symbicort to relieve inflammation and bronchoconstriction, and acapella/ incentive spirometry to open airways and clear mucous
- Tessalon pearls for cough
:: influenza and covid negative
- sputum cultures: Usual respiratory jayleen, not sufficient sample final
- Weaned O2 nasal cannula 02/09/2025. Scratched not on O2 at home
� Nocturnal pulse ox demonstrated desaturation for a total of 6 hours. Patient requires 2 L nocturnal O2
- Patient requires oxygen at 1 LPM nasal canula continuously due to pulse ox of 85% room air at rest. Oxygen will help to improve hypoxemia. Patient is mobile within the home. Duoneb therapy has been tried and is ineffective in treating
hypoxemia-related symptoms. Oxygen is needed to improve symptoms
New onset paroxysmal atrial fibrillation:
:: Confirmed on EKG on admission 02/03/2025, no previous history. Admitted to telemetry
:: TSH normal
:: [id number] = 4
:: Duration of A-fib unclear as patient is asymptomatic
� Started Eliquis 5 mg p.o. twice daily. CM checked cost: 30-day free card, followed by $116 a month. Patient willing to continue on OAC
- Started Toprol XL 25 mg for rate control
- Echocardiogram 02/06/2025: EF 70%, normal LV size and systolic function. Thickened and calcified aortic valve. Moderate tricuspid regurg. Estimated PA pressure 55 mmHg, assuming right atrial pressure 8 mmHg.
Cardiology following
� Doubled Lasix IV to 80 mg twice daily. Discharging the patient on 60 mg Lasix p.o. daily
� proBNP 1620. 1370 on admission
� Consider steroid adjustment with worsening wheezing. Defer to primary service
Bilateral lower extremity edema with elevated BNP secondary to HFpEF
Hyponatremia secondary to hypervolemia
Hypertension
:: hypervolemic given crackles, lower extremity edema, cough, and orthopnea.
� Fluid restriction 50 ounces per day
- Increased Lasix 40 mg IV daily to 40 mg IV BID as his weight has increased 1 kg since yesterday. His weight is 84 kg today from 83 kg yesterday.
- Echo pending
- Monitor weights, ins/outs, urine output.
� Continue MANAGEMENT RECRUITER losartan 25 mg p.o. daily
� Held amlodipine 10 mg p.o. daily due to lower extremity edema
� Started spironolactone 25 mg p.o. daily
- hctz held due to hyponatremia. Anticipate discontinuing due to increase side effects in older adults
Dysphagia to oral medications:
- speech recommendation: Regular diet
1. IDDSI 7 Regular solids, IDDSI 0 thin liquids
2. Medication as best tolerated (Pt prefers whole in applesauce)
3. Standard aspiration precautions
4. Aspiration risk factors present. At bedside pt managing regular solids and thin liquids with no overt s/sx of aspiration. NEWS VIDEO EDITOR s/o. Please reconsult if concerned for aspiration or if worsening chest imaging/respiratory status.
DVT PPX - eliquis
Code status - DNR
Anticipated Discharge: Today
Subjective/Interval History
-
Date of Service: February 10, 2025
No acute events overnight. Patient states his breathing feels better on 1 L of oxygen, compared to yesterday on room air. He feels the swelling has gone down. He had no other complaints.
Objective Data
-
Labs:
Laboratory Results
02/10/25
05:26
WBC 11.9 H
Hgb 15.4
Hct 46.5
Plt Count 257
Sodium 141
Potassium 4.2
Chloride 96 L
Carbon Dioxide 39 H
BUN 47 H
Creatinine 1.0
Glucose 90
Calcium 9.1
Vital Signs:
Vital Signs
Temp Pulse Resp BP Pulse Ox
97.8 F 83 20 156/86 93
02/10/25 08:53 02/10/25 08:53 02/10/25 08:53 02/10/25 08:53 02/10/25 08:53
I&O
02/09/25 02/10/25 02/11/25
06:59 06:59 06:59
Intake Total 1200 / 1200 480 / 480
Output Total 745 / 745 630 / 630
Balance 455 / 455 -150 / -150
Review of Systems
-
History Source: Patient
All other systems: Reviewed and negative
Physical Exam
-
General: Well Developed, Well Nourished, No Apparent Distress and Conversant
HEENT: Normocephalic, Atraumatic, Anicteric, No Ptosis, Nose Appears Normal and Ears Appear Normal
Respiratory: Clear to Auscultation
Cardiac: Regular Rhythm and S1/S2
GI: Soft, Nontender, Nondistended and Normal Bowel Sounds
Musculoskeletal: No Clubbing, No Cyanosis, Edema, Right Lower Extrem and Edema, Left Lower Extrem
Skin: Warm and Dry
Neuro: Awake and Alert
Psych: Calm
--- NOTE | 2025-02-10 10:55 | W.PN.UPDATE ---
Update Note
Progress Note Update
I saw and evaluated the patient. I reviewed the resident�s note and agree with findings and plan as documented in the resident�s note.
No new complaints.
Gen: NAD, AAOx3, appears chronically ill
Eyes: EOMI, PERRLA, no scleral icterus.
Neck: supple.
CV: RRR, +S1/S2, no m/r/g.
Resp: distant BS, otherwise, CTAB
Abd: +BS, soft, NT, ND
Skin: No rashes. trace B/L ankle LE edema
Neuro: CN 2-12 intact, non-focal.
Psych: Normal mood and affect.
02/07/25 00:50 Sputum Respiratory Culture - Final
02/07/25 00:50 Sputum Gram Stain - Final
02/04/25 07:29 Sputum Respiratory Culture - Final
Usual Respiratory Lizette
02/04/25 07:29 Sputum Gram Stain - Final
02/04/25 16:30 Nasal Swab Influenza Types A & B (LEONCIO) - Final
Negative for Influenza A & B, NAAT
Negative results must be combined with clinical observations
and patient history.
Nucleic Acid Amplification test (NAAT)performed on the
[employer] NOW platform.
02/03/25 22:39 Urine Legionella Urinary Antigen - Final
Negative for Legionella pneumophila Serogroup 1 antigen.
A negative result does not rule out the possiblity of
Legionella infection due to other serogroups or species of
Legionella. Clinical correlation is recommended.
02/03/25 22:39 Urine Streptococcus pneumoniae Antigen (M - Final
Negative for Streptococcus pneumoniae antigen.
A negative result does not exclude infection with
Streptococcus pneumoniae. Clinical correlation is
recommended.
CXR 02/07: There are persistent although improved patchy airspace opacities within the right lower lung which are likely secondary to improving pneumonia.
Acute hypoxemic respiratory failure:
-Sepsis due to pneumonia with organ dysfunction of acute hypoxic respiratory failure
-multifactorial due to RLL pneumonia (causing acute COPD Exac) and acute HFpEF
-was on 5L NC O2, now weaned to 1L NC O2
-COVID/Flu NEG
-completed 7 days Rocephin/Azithro, no further abx needed
-completed 6 days Prednisone 40mg daily
-cont Symbicort/duonebs
-was diuresed with IV Lasix, transition to Lasix 60mg PO daily, discussed with cards
-daily wts (wt down nearly 8Kg), I/Os
-nocturnal pulse ox noted, 6 hours below 89%, qualifies for nocturnal O2 2L/min. Also qualifies for 1L/min NC O2 during the day.
New onset atrial fibrillation:
-cont Eliquis/BB
Hypervolemic hyponatremia:
-due to acute CHF and HCTZ (which has been stopped)
-resolved
DNR/Eliquis
Medically cleared for d/c.
Total time spent on d/c = 36 min. This included today's physical exam, progress note, review of laboratory and diagnostic data, preparation of discharge documents and prescriptions, and discussions about the pt's hospital course and discharge plan
with the patient and other medical office assistant instructor involved in the patient's care.
[2025-02-10 11:42] VITALS: BP 117/61
--- NOTE | 2025-02-10 11:48 | W.PN.CARDCBS ---
Today's Communication / Plan
-
Has diuresed about 16 pounds. Clinically improved.
Would discharge on Lasix 60 mg daily
Check basic metabolic panel in 1 week
Continue rate control strategy for A-fib. Continue Toprol and Eliquis.
Blood pressure stable. Continue Cozaar and spironolactone.
Can discuss SLGT 2 inhibitor as outpatient.
Impression / Plan
-
.
PCP: Dr. Fuentes
Cardiology: None
Impression:
Admitted with RLL PNA, acute HF and new A-fib 02/03/2025
RLL PNA
Acute HFpEF
Newly diagnosed paroxysmal atrial fibrillation of unclear duration
HTN
Emphysema/COPD
Former smoker
Hyponatremia
Echo 02/06/2025: EF 70%, normal LV size and function, thickened and calcified aortic valve with normal leaflet excursion, moderate TR with PAP 55 mmHg
Plan:
Multifactorial dyspnea with acute respiratory failure from right lower lobe pneumonia, acute heart failure and newly diagnosed atrial fibrillation February 03, 2025
Wt continues to come down. Has lost 16 lbs
Cr stable. Will switch to Lasix 60mg daily
Cont GDMT for HFpEF including Toprol, Cozaar, and spironolactone
Can consider SGLT2 inhibitor as outpatient given his current infection.
EF preserved at 70% without significant valve disease on echo.
Continue rate control strategy for A-fib in setting of pneumonia.
Continue Eliquis; Appreciate help of case management on checking cost, he can use the free 30-day card and then it would be $116 a month thereafter
If remains in A-fib after treatment for pneumonia, would consider SILVA cardioversion as outpatient.
Cont pulm toilet with abx, ceftriaxone and azithromycin.
nocturnal pulse ox per primary service
Patient has a diagnosis of emphysema and COPD but does not follow with a installment agent
Discussed with primary service
HPI:-Patient came to the ER last night from his PCPs office with LE edema and SOB for a week and was admitted with RLL PNA, acute HF and new A-fib prompting cardiology consultation. Patient sees his PCP at least twice a year and then as needed when
he is sick, patient reports that he and his both seem to have a cold but his was stable or getting better while he was only getting worse with symptoms of increasing SOB, edema and productive cough. In the PCP office there was some
concern for hypoxia and possible A-fib prompting referral to the ER. ECG in the ER looks like A-fib which is a new diagnosis and HR has been in the 90s without rate controlling medications. He denies any palpitations and no known history of A-fib.
He has never required OAC in the past. CXR in the ER confirmed RLL PNA and patient started on antibiotics. There was also some concern about acute HF and the proBNP was 1370 and patient was started on Lasix 40 mg IV daily and he reports increased
urine output and overall symptomatic improvement in SOB. Patient reports that LE edema appears to be acute on chronic and reports that within the last several months when his amlodipine dose was increased to 10 mg daily is when he first started to
notice increased edema. He is also chronically on HCTZ 25 mg daily and was noted to be hyponatremic on admission.
Progress Note - Telecom Field Technician
Subjective
Date of Service: February 10, 2025
Breathing has improved. He has lost about 15 pounds. Denies chest pains.
Objective
Labs:
02/10/25 05:26
02/10/25 05:26
Labs
Hgb 15.4 g/dL (13.0-18.0) 02/10/25 05:26
Hct 46.5 % (39.0-52.0) 02/10/25 05:26
Plt Count 257 10^3/uL (130-400) 02/10/25 05:26
Sodium 141 mmol/L (135-145) 02/10/25 05:26
Potassium 4.2 mmol/L (3.5-5.1) 02/10/25 05:26
BUN 47 mg/dl (9-20) H 02/10/25 05:26
Creatinine 1.0 mg/dL (0.7-1.3) 02/10/25 05:26
Glucose 90 mg/dl (70-99) 02/10/25 05:26
Vital Signs and I&O:
Vital Signs
Temp Pulse Resp BP Pulse Ox
97.4 F 88 18 117/61 93
02/10/25 11:42 02/10/25 11:42 02/10/25 11:42 02/10/25 11:42 02/10/25 11:42
Vital Signs
Temp Pulse Resp BP Pulse Ox
97.4 F 88 18 117/61 93
02/10/25 11:42 02/10/25 11:42 02/10/25 11:42 02/10/25 11:42 02/10/25 11:42
Intake & Output
02/08/25 02/09/25 02/10/25 02/11/25
06:59 06:59 06:59 06:59
Intake Total 720 / 720 1200 / 1200 480 / 480
Output Total 745 / 745 630 / 630
Balance 720 / 720 455 / 455 -150 / -150
Physical Exam
Physical Exam
GEN: No distress, awake, Ox3
HEENT: supple, anicteric, mmm
LUNGS: scatt rhonchi
CV: irreg, S1/S2, 1/6 syst LSB, no murmur
ABD: soft, BS+, NT/ND
EXT: No edema
NEURO: Gross non-focal
SKIN: No rash
--- NOTE | 2025-02-10 12:33 | CM ---
Chart reviewed and caseworker protective services spoke with patient this am and patient has home care set up with VN, patient also has been set up with home oxygen from [facility].
Plan; Home with spouse and [facility] home oxygen from [facility].
[2025-02-10] MEDS: STERILE WATER FOR INJECTION IV (13:12)
--- NOTE | 2025-02-10 13:39 | W.DCSUMMARY ---
Discharge Summary
Discharge Data
Date of Admission: 02/03/25
Date of Discharge: 02/10/25
-
Pending Results: No
Hospital Course
Discharging Physician : Dr. Will and Dr. Gunter
Disposition : SNF
Primary care physician : Diane Mcnulty
Principal Discharge diagnosis : Acute hypoxic respiratory failure with pneumonia
Chronic Discharge diagnosis : New onset paroxysmal atrial fibrillation, hyponatremia, HFpEF, COPD
Hospital Course :
Mr. Ulysses Duran is a 79-year-old with past medical history of COPD not on home O2, HTN, former tobacco use, who presented with shortness of breath, wheezing, and cough. He also had lower extremity swelling Chest x-ray demonstrated right lower lobe
infiltrate. In summary, his acute hypoxic respiratory efficiency was found to be due to combination of pneumonia, COPD exacerbation, new onset paroxysmal A-fib, and HFpEF.
Patient reported symptoms began about 1 week ago. He said that he started to have upper respiratory symptoms, such as sore throat and cough. A few days later, his developed similar symptoms but she got over it. He continued to have cough
that went from clear mucus to brown mucus. He started having dyspnea on exertion and shortness of breath. He reports that when he lays down he does feel more short of breath due to increased cough production. He had a long history of intermittent
lower extremity swelling. Initially said this was secondary to amlodipine which he has been on for several years. He said his weight is around 185 pounds and it has not changed recently. He reports that the edema is dependent that he usually
takes hydrochlorothiazide for it.
ED course
In the emergency department patient was afebrile with a temp of 98.1, blood pressure was 161/100 with a pulse of 83 and he was satting as low as 85% on room air. ECG shows new onset atrial fibrillation at a rate of 94. Chest x-ray with a right
lower lobe infiltrate/pneumonia. BNP was elevated at 1370. He had leukocytosis with a white count of 15.7, hemoglobin and platelets were normal. Sodium was 130 electrolytes BUN and creatinine were all in the normal range with a glucose of 106.
Problem 1: Acute hypoxic respiratory failure
For his pneumonia, he completed 7-day courses of ceftriaxone and azithromycin inpatient. His lungs initially had crackles on exam, but then grew clear. He reported his cough decreased. Chest x-ray demonstrated improving pneumonia.
For COPD exacerbation, he received prednisone 40 mg daily for 6 days, as well as Symbicort and DuoNebs.
He was COVID and flu negative. The 4 sputum culture demonstrated usual respiratory jayleen. The second sputum culture sample was not sufficient.
He will get weaned to room air, but then desat and started on 1 L of oxygen repeatedly for a few times. Nocturnal pulse ox demonstrated saturation for total of 6 hours. He was provided nocturnal oxygen (2 L) at discharge, as well as nasal cannula
during the day (1 L), because a home O2 assessment demonstrated desaturation at rest on room air.
Problem 2: New onset paroxysmal A-fib
EKG on admission demonstrated A-fib. The duration of A-fib is unclear since the patient has been asymptomatic. Since his [id number] score was 4, he was started on Eliquis 5 mg p.o. twice daily. Case management provided fernandez information, and
the patient is willing to continue on Eliquis. Metoprolol 25 mg was started for rate control.
Problem 3: Newly diagnosed heart failure
Cardiology concluded he had a HFpEF exacerbation. Echo demonstrated an EF of 70%. He was started on furosemide, which was increased to 80 mg IV twice daily. His weight decreased by 16 pounds. He was discharged on furosemide 60 mg p.o. daily. He
was also started and discharged on spironolactone 25 mg p.o. daily.
Problem 4: Hypertension
Hydrochlorothiazide was discontinued due to hyponatremia, for which he was put on a fluid striction. Amlodipine was discontinued due to pedal edema. Losartan was doubled to 50 mg p.o. daily, due to elevated blood pressures in the discontinuation
of 2 antihypertensives. The spironolactone added for heart failure also helps with hypertension.
Important imaging findings :
Chest x-ray 02/03/2025: Right lower lobe pneumonia
Chest x-ray 02/07/2025: There are persistent although improved patchy airspace opacities within the right lower lung which are likely secondary to improving pneumonia.
Procedure findings : None
Discharge Plan
-
Patient Disposition: Home (Routine Discharge)
Discharge Diagnosis/Procedures: Pneumonia
COPD exacerbation
New onset paroxysmal A-fib
Bilateral pedal edema
Hyponatremia
Hoarse voice
Condition: Good
Diet: Low Sodium
Activity: As tolerated
Driving Restrictions: As prior to admission
Referrals:
Dinae Mcnulty PA [Family Provider, Family Practice] - in less than 1 week
Caprice Rivas PA-C [Specified Professional Personl, Cardiology] - 03/01/25 11:20 am
Referral Note: You have cardiology follow up with Caprice Rivas PA-C on March 01 at 11:20 am in [address] in the [place] which is located behind [facility]. If you are unable to make this appointment please call [phone] to
reschedule
Additional Discharge Medication Instructions: For your newly diagnosed paroxysmal atrial fibrillation, please take Eliquis 5 mg twice daily to prevent strokes from A-fib. Please also take metoprolol 25 mg daily to prevent your heart rate from
increasing due to A-fib.
Please follow-up with your primary care doctor for this hospitalization (pneumonia, COPD exacerbation, heart failure exacerbation), as well as hypertension medication adjustment.
For your ankle edema and heart failure aspiration, please start taking Lasix (furosemide) 60 mg daily (3 tabs of 20 mg daily). Please see a casing mixer and get blood drawn for a basic metabolic panel in 1 week. We also started you on Aldactone
(spironolactone) 25 mg daily for heart failure (also helps with elevated blood pressure.
We stopped your hydrochlorothiazide, because you had hyponatremia, which is a side effect of hydrochlorothiazide that is more common in older adults. We also stopped your amlodipine, because it may be contributing to your new bilateral feet/ankle
swelling. We doubled your losartan to 50 mg daily, so please take this increased dose. Your PCP may modify your antihypertensive further.
Prescriptions:
New
Eliquis 5 mg tablet
5 mg PO BID Qty: 60 0RF
losartan 50 mg Tablet
50 mg PO DAILY Qty: 30 0RF
metoprolol succinate 25 mg Tablet Extended Release 24 Hr
25 mg PO DAILY Qty: 30 0RF
furosemide [Lasix] 20 mg tablet
20 mg PO DAILY Qty: 90 0RF
Rx Instructions:
Take 3 tabs for 60 mg daily
spironolactone 25 mg Tablet
25 mg PO DAILY Qty: 30 0RF
benzonatate 100 mg Capsule
200 mg PO TIDPRN PRN (Reason: cough) Qty: 30 0RF
Continued
fluticasone propion-salmeterol [Advair Diskus] 250-50 mcg/dose Blister With Device
1 inh INHALATION R BID
acetaminophen [Tylenol] 325 mg Tablet
650 mg PO Q6HPRN PRN (Reason: mild pain)
Incruse Ellipta 62.5 mcg/actuation Blister With Device
1 inh INHALATION R DAILY
Discontinued
hydrochlorothiazide 25 mg Tablet
25 mg PO DAILY
amlodipine [Norvasc] 10 mg Tablet
10 mg PO DAILY
losartan 25 mg Tablet
25 mg PO DAILY
Discharge Orders:
Discharge Patient (As Directed); Ordered 02/10/25
Ordered By: Thomas Will
Discharge Date and Time
Print Language: MONTSERRATIAN
== END 2025-02-10 15:21 | disposition home health service (06) | DRG 871 ==
LOC: 4 WEST ACU 20:32
PROVIDERS: Physician Assistant; ADMITTING PHYSICIAN Internal Medicine; ATTENDING PHYSICIAN Internal Medicine; EMERGENCY PHYSICIAN Student in an Organized Health Care Education/Training Program; FAMILY PHYSICIAN Physician Assistant; OTHER PHYSICIAN Nuclear Medicine Nuclear Cardiology
DX: A41.9 Sepsis, unspecified organism (principal); I50.33 Acute on chronic diastolic (congestive) heart failure; J18.9 Pneumonia, unspecified organism; J96.01 Acute respiratory failure with hypoxia; E87.1 Hypo-osmolality and hyponatremia; I42.8 Other cardiomyopathies; J43.9 Emphysema, unspecified; I11.0 Hypertensive heart disease with heart failure; R65.20 Severe sepsis without septic shock; R13.10 Dysphagia, unspecified; R49.0 Dysphonia; I35.8 Other nonrheumatic aortic valve disorders; I48.0 Paroxysmal atrial fibrillation; E78.00 Pure hypercholesterolemia, unspecified; Z66 Do not resuscitate; Z87.891 Personal history of nicotine dependence; Z82.3 Family history of stroke; Z11.52 Encounter for screening for COVID-19; Z79.899 Other long term (current) drug therapy; Z79.51 Long term (current) use of inhaled steroids
CPT/HCPCS: 71046; 80048; 80053; 83735; 83880; 84443; 85025; 85027; 87070; 87205; 87449; 87502; 87811; 87899; 92610; 93005; 93306; 94640; 94762; 96365; 96375; 97116; 97162; 97166; 99285

== ENCOUNTER 2025-02-22 10:58 | Inpatient (IN) | payer MEDICARE, BC, SELFPAY ==
[2025-02-22] VITALS (13 sets, daily range): BP systolic 97–135; BP diastolic 49–109; BMI 21.6
--- NOTE | 2025-02-22 08:37 | ED.GENMED ---
History of Present Illness
General
Chief Complaint: Rectal Bleeding
Source: patient, records, spouse and ambulance crew
Exam Limitations: none
Time Seen by Provider: 02/22/25 08:28
Nursing documentation reviewed up to this point in time: agreed with
History of Present Illness
History of Present Illness:
79-year-old male with a past medical history of COPD, hypertension, newly diagnosed atrial fibrillation on Eliquis who presents to the emergency department via EMS from home for evaluation of rectal bleeding. Of note patient was admitted to this
hospital 02/03 until 02/10�he was admitted with hypoxic respiratory failure that was multifactorial including COPD exacerbation, right sided pneumonia, new onset atrial fibrillation. He was treated antibiotics and steroids/nebs and ultimately
discharged from the hospital on Eliquis and metoprolol for new onset A-fib. He was also discharged on nocturnal oxygen after noted that he was having desaturations at nighttime. He had been doing well since discharge until this morning. He says
he woke up and had a bowel movement and passed bright red blood per rectum. He says that it was bright red blood that filled the toilet bowl mixed with stool. He apparently had 3 episodes this morning. No nausea or vomiting. Denies any abdominal
pain. He says he feels slightly more short of breath than usual but does not feel dizzy, denies chest pain. He denies any other acute complaints. He denies any history of GI bleeding. He says he had a colonoscopy at some point in the past (chart
review indicates that it was on 01/09/[address] Lima, polyps resected). He reports his last dose of Eliquis was this morning.
Review of Systems
Review of Systems
All Other Systems: ROS reviewed and negative except as documented in HPI and ROS
Constitutional: Denies fever
Respiratory: Reports trouble breathing
Cardiac: Denies chest pain or palpitations
ABD/GI: Reports bloody stools; Denies abdominal pain, nausea or vomiting
: Denies flank pain
Musculoskeletal: Denies neck pain or back pain
Neurological: Denies dizzy or headache
Phy Exam
Physical Exam
Physical Exam:
General: Awake, alert, oriented x3; somewhat anxious but in no acute distress
Head: Normocephalic, atraumatic
Eyes: Conjunctiva normal, sclera anicteric
Throat: Airway intact, handling secretions
Neck: Trachea midline, supple without meningismus
Lungs: Clear to auscultation bilaterally, no wheezing, rales, rhonchi
Heart: Tachycardia with regular rhythm, no murmurs, gallops, or rubs
Abd: Soft, non distended, nontender
Rectal: Small perianal skin tag no fissures/tears or hemorrhoids noted, enlarged prostate but no rectal mass, dark red blood in the rectal vault mixed with stool Hemoccult confirmed positive
Neuro: Grossly intact
Skin: Warm and dry
Extremities: No edema in extremities, warm and well-perfused
Scores
Heart Failure Risk
Heart Failure Risk Score: Not Applicable
Heart Score for Chest Pain Patients
STEMI patient?: Not applicable
Withdrawal Assessment of Alcohol
Withdrawal Assessment Completed?: Not applicable
Course
Orders/Labs/Results
Orders:
Orders
02/22/25 08:31
Electrocardiogram (*1) Urgent
Reason for Study: Atrial Fibrillation
EKG- Treatment ONCE
02/22/25 08:33
Type+Screen Urgent
Complete Blood Count/With Diff Urgent
Comprehensive Metabolic Panel Urgent
PTT Urgent
Prothrombin Time Urgent
02/22/25 Lunch
NPO
Allow oral meds: Yes
Allow clear liquids: Sips of Clears
02/22/25 10:37
Admit/Transfer Patient As Directed
Co-Sign Provider:
Level of Care: Inpatient admission
Assign to:: IMU- Intermediate Care
Physician / Group: reema/hospitalist
Diagnosis: GIB
Reason for Hospitalization: GIB
Expected length of stay greater than two midnights?: Yes
ELOS- Estimated Length of Stay in days: 4
I certify the patient meets the requirements for IP care: Yes
PRN Pain Medication Management As Directed
May give lesser potent ordered pain med per pt: Yes
preference::
Protocol:: Medication orders for pain may be administered in a
manner that supports deferring to patient preference
when the pt is:
- Requesting an ordered lesser potent pain medication.
Least to most potent pain medications are defined
as: acetaminophen < NSAID < tramadol < opioids
(morphine, oxycodone, hydromorphone).
- Requesting a lesser dose of the same medication IF
ORDERED.
- Requesting a less intrusive route of administration
if both routes are prescribed by the provider (PO <
IV).
02/22/25 10:38
Code Status As Directed
Resuscitation Status: Full Code
02/22/25 13:17
Benzonatate [Tessalon Perles] 200 mg PO TIDPRN PRN cough
Pantoprazole [Protonix IV] 40 mg IV BID
02/22/25 13:17
GASTROINTESTINAL CONSULT Routine
Consulting Provider: Nereida Powers
Was physician already notified: Yes
Activity As Directed
Activity Level: Out of Bed-Early Mobility
INT (Intravenous Needle Therapy) As Directed
Comment: Place 2 IV catheters of the largest bore possible until stable
Orthostatic Vital Signs As Directed
Orthostatic VS Frequency: Now
Comment: then every four hours for twenty-four hours
Pneumatic Compression Sleeves As Directed
Type: Knee high
Vital Signs As Directed
Frequency: Per unit guidelines
DX Deep Vein Thrombosis Video Routine
02/22/25 13:19
H&H Q6H
02/22/25 19:17
H&H Q6H
02/22/25 20:00
Fluticasone/Salmeterol 115/21 [Advair Hfa 115/21 Mcg Inhaler] 2 puff INH R BID
02/23/25 01:17
H&H Q6H
02/23/25 06:00
Basic Metabolic Panel IN AM
02/23/25 07:17
H&H Q6H
02/23/25 08:00
Metoprolol Xl [Toprol Xl] 25 mg PO DAILY
Tiotropium Secretary 2.5 Mcg [Spiriva Respimat 2.5 Mcg] 2 puff INH R DAILY
Abnormal Lab Results
02/22/25
08:33
WBC 10.9 H 10^3/uL
(4.8-10.8)
RBC 4.12 L 10^6/uL
(4.70-6.10)
Hgb 12.9 L g/dL
(13.0-18.0)
MCV 94.7 H fL
(80.0-94.0)
MCH 31.3 H pg
(27.0-31.0)
MPV 11.2 H fL
(7.4-10.4)
Abs Immat Gran (auto) 0.1 H 10^3/uL
(0-0.05)
Absolute Neuts (auto) 9.1 H 10^3/uL
(1.4-6.5)
Absolute Lymphs (auto) 1.0 L 10^3/uL
(1.2-3.4)
Absolute Monos (auto) 0.7 H 10^3/uL
(0.1-0.6)
Neutrophils % 82.8 H %
(42.2-75.2)
Lymphocytes % 8.9 L %
(20.5-51.1)
PT 19.6 H Sec
(11.4-14.6)
Potassium 5.2 H mmol/L
(3.5-5.1)
BUN 39 H mg/dl
(9-20)
Glucose 131 H mg/dl
(70-99)
ALT 55 H U/L
(0-50)
02/22/25 08:33
02/22/25 08:33
Vital Signs
Initial and Last Documented VS:
Initial Vital Signs
Temp Pulse Resp BP Pulse Ox
37.2 C 114 24 129/49 96
02/22/25 08:30 02/22/25 08:30 02/22/25 08:30 02/22/25 08:30 02/22/25 08:30
Last Documented Vital Signs
Temp Pulse Resp BP Pulse Ox
36.5 C 105 28 135/76 99
02/22/25 13:11 02/22/25 14:00 02/22/25 14:00 02/22/25 14:00 02/22/25 14:06
MDM/Problems Addressed
Differential Diagnosis Includes:
Lower GI bleeding: Hemorrhoids, diverticular bleed, AVM, cancer/mass, etc
MDM/Problems Addressed:
79-year-old male presents to the emergency room for evaluation of rectal bleeding; had recent admission for pneumonia/COPD as well as new onset A-fib and was started on Eliquis (last dose this morning). 3 episodes of bright red blood per rectum
this morning. Mild diastolic hypotension with a blood pressure of 129/49; pulse 114; mild tachypnea but no hypoxia, no fever. Physical exam as noted�rectal exam showed dark red blood mixed with stool heme positive. Plan to place large-bore IV send
labs including CBC, CMP, coags, type and screen. Check EKG. Will monitor for additional bleeding, reassess after the above. Anticipate admission.
Labs reviewed: CBC shows mild leukocytosis in the setting of recent steroids. Hemoglobin 12.9 decreased from 15.4 on discharge. Chemistry marginal hyperkalemia with elevated BUN. Blood pressure improved remains tachycardic. Blood consent filed
in the medical record in case of need but he is above transfusion threshold for now. Hold off on emergent anticoagulant reversal but would hold anticoagulation. Admit for continued monitoring. Discussed case with hospitalist for admission.
Chronic conditions affecting care:
A-fib on Eliquis
*Pulse Oximetry
SaO2: 96
Nasal Cannula flow liters per minute: 1
Patient hypoxic: no (96%)
*EKG
Interpreted by ED Provider?: Yes
Heart Rate: 113
Rate: tachycardiac
Rhythm: a-fib
[place]: normal axis
Interval: normal interval
QRS Pattern: normal QRS
Ischemia: non-specific ST changes
*Critical Care Note
Total Time (30-74mins, 75-104mins- exclusive of procedures): Not Applicable
Data Reviewed
Review of Other/Old Records Reveals: Labs, Records and Testing
Source: patient, records, spouse and ambulance crew
Prescriptions/Medications Considered But Not Given:
Considered anticoagulant reversal such as Kcentra; considered the need for blood transfusion
Patient Management
Discussion with other providers: Hospitalist (Discussed with hospitalist)
Escalation/DeEscalation of care consider admission/obs:
Admission indicated
ED Attending Note
-
Portions of this chart may have been created with voice recognition software.� Occasional wrong word or��sound alike� substitutions may have occurred due to the inherent limitations of voice recognition software.
Discharge Plan
Departure
Patient Disposition: Admit
Date of Disposition: 02/22/25
Time of Disposition: 09:12
Admit to doctor: Gordo
Presentation/result/management discussed w/ accepting MD/DO: Hospitalist
Discharge Problem:
Acute lower gastrointestinal hemorrhage, Acute blood loss anemia
Interventions
Interventions:
*Risk Screen - Suicide Last Done: 02/22/25 08:29
*General Assessment Last Done: 02/22/25 08:29
*Neglect/Abuse Screening Last Done: 02/22/25 08:29
*ED COVID-19 Vaccine History Last Done: 02/22/25 08:29
*ED Influenza Vaccine History Last Done: 02/22/25 08:29
*Nursing Disposition Last Done: 02/22/25 13:20
LN-Ngmotj-Cohnolzdgn Assessment Last Done: 02/22/25 08:45
ED- Cardiac Assessment Last Done: 02/22/25 08:45
ED- Pulmonary Assessment Last Done: 02/22/25 08:45
Discharge Date and Time
Discharge Date/Time: 02/22/25 13:20
[2025-02-22 08:41] LABS: Hematocrit 39.0 % (39.0-52.0); Hemoglobin 12.9 g/dL (13.0-18.0); Mean Corp Hgb Conc. 33.1 g/dL (33.0-37.0); Mean Corpuscular Volume 94.7 fL (80.0-94.0); Nucleated Red Blood Cells % 0 % (-); Platelet Count 273 10^3/uL (130-400); Red Cell Dist. Width 12.7 % (11.5-14.5)
[2025-02-22 08:51] LABS: INR 1.60; PT 19.6 Sec (11.4-14.6)
[2025-02-22 08:52] LABS: APTT 32.0 Sec (23.4-35.0)
[2025-02-22 08:59] LABS: ALT (SGPT) 55 U/L (0-50); AST (SGOT) 31 U/L (17-59); Albumin 3.8 g/dl (3.5-5.0); Alkaline Phosphatase 64 U/L (38-126); Blood Urea Nitrogen 39 mg/dl (9-20); Calcium 9.1 mg/dl (8.4-10.2); Carbon Dioxide 28 mmol/L (22-30); Chloride 103 mmol/L (98-107); Glucose 131 mg/dl (70-99); Potassium 5.2 mmol/L (3.5-5.1); Sodium 137 mmol/L (135-145); Total Protein 6.9 g/dl (6.3-8.2); eGFR > 60.00
--- NOTE | 2025-02-22 10:39 | HPS.HSE ---
Family Physician
-
Family Physician: Tristan Moore
Chief Complaint
-
BRBPR
History of Present Illness
79-year-old male extensive past medical history was recently diagnosed with atrial fibrillation was started on Eliquis. Patient woke up this morning went to the bathroom and noticed bright red blood per the rectum. Denied any abdominal pain no
cramping with bowel movement. Noticed that toilet bowl with bright red blood which was mixed with stool. Denies any nausea or vomiting. Still mildly flushing. Denies any lightheaded or dizziness. Denies any chest pain or shortness of breath.
No prior history of gastrointestinal bleeding. Patient stated 3 episode of bright red blood per the rectum. Had 2 hotdogs overnight. Denied any severe abdominal pain with bowel movements. Denies any chest pain, shortness of breath, nausea,
vomiting. Denies any lower extremity edema. Of note patient was recently admitted to the hospital for COPD exacerbation, pneumonia and was also found to be new onset of atrial fibrillation and was started on Eliquis. Patient did take dose of
Eliquis prior to coming to the hospital. Patient also take additional heart failure medication prior to coming to the hospital. Did not take his inhalers.
Medical History
Past Medical History
Past Medical History: Reports Arrhythmia (Atrial fib paroxysmal ), COPD, HTN and Hypercholesterolemia
Past Surgical History: Reports None
Social History
Tobacco: Former Smoker
Alcohol: Daily (1 glass of wine per family and patient)
Drug: None
Personal:
Living: With Family
Employment: Retired
Family History
Family History: Not pertinent
Allergies / Home Medications
Allergies reflects when Allergies were last updated in [facility].
Home Medications with original date entered in [facility]
Allergy/Medication List:
Allergies
Allergy/AdvReac Type Severity Reaction Status Date / Time
No Known Allergies Allergy Unverified 02/03/25 14:47
Home Medications
fluticasone 250 mcg-salmeterol 50 mcg/dose blistr powdr for inhalation (Advair Diskus) 1 inh inhalation R BID sob 02/03/25
umeclidinium 62.5 mcg/actuation blister powder for inhalation (Incruse Ellipta) 1 inh inhalation R DAILY sob 02/03/25
apixaban 5 mg tablet (Eliquis) 5 mg PO BID Blood clot prevention/tx #60 tabs 02/04/25
losartan 50 mg tablet 50 mg PO DAILY Blood pressure #30 tabs 02/07/25
metoprolol succinate 25 mg tablet,extended release 24 hr 25 mg PO DAILY Arrhythmia #30 tabs 02/07/25
benzonatate 100 mg capsule 200 mg (2 x 100 mg) PO TIDPRN PRN cough #30 caps 02/10/25
spironolactone 25 mg tablet 25 mg PO DAILY Blood pressure #30 tabs 02/10/25
furosemide 20 mg tablet (Lasix) 20 mg PO TID edema, heart failure 02/22/25
Review of Systems
-
History Source: Patient
Constitutional: Reports No Symptoms
EENT: Reports No Symptoms
Respiratory: Reports Cough
Cardiac: Reports No Symptoms
Abdomen/GI: Reports See HPI
: Reports No Symptoms
Musculoskeletal: Reports No Symptoms
Skin: Reports No Symptoms
Neurological: Reports No Symptoms
Endocrine: Reports No Symptoms
Hematologic/Lymphatic: Reports No Symptoms
Psych: Reports No Symptoms
Physical Exam
Vital Signs
Vital Signs
Temp Pulse Resp BP Pulse Ox
98.9 F 103 25 128/72 99
02/22/25 08:30 02/22/25 09:00 02/22/25 09:00 02/22/25 09:00 02/22/25 09:00
Physical Exam
General: Well Developed, Well Nourished and No Apparent Distress
HEENT: NormoCephalic, Moist mucous membranes, Atraumatic and Oxygen
Respiratory: Rhonchi and Non Labored Respirations; No Accessory Resp Muscle Use
Cardiac: S1/S2 and Irregular Rhythm; No Murmur or Rub
GI: Soft, Non Tender, Non Distended and Normal Bowel Sounds; No Organomegaly
Rectal: Deferred by Provider
Musculoskeletal: No Clubbing, No Cyanosis and No Edema
Skin: No Rash
Neuro: Awake, AO x 3, No Motor Deficits and Nonfocal/grossly intact
Psych: Calm
Laboratory Results
-
02/22/25 08:33
02/22/25 08:33
Laboratory Results
PT 19.6 Sec (11.4-14.6) H 02/22/25 08:33
INR 1.60 02/22/25 08:33
APTT 32.0 Sec (23.4-35.0) 02/22/25 08:33
Total Bilirubin 1.0 mg/dl (0.2-1.3) 02/22/25 08:33
AST 31 U/L (17-59) 02/22/25 08:33
ALT 55 U/L (0-50) H 02/22/25 08:33
Alkaline Phosphatase 64 U/L (38-126) 02/22/25 08:33
Data Reviewed
-
Lab Data: Labs Reviewed by me, Discussed with Patient and Discussed with Family
Impression/Plan
-
#Acute blood loss anemia secondary lower GI bleed exacerbated with usage of Eliquis
#Blood per the Rectum Likely Secondary to Lower GI Bleed Secondary to Diverticulosis Versus AVMs Versus likelihood of lesion
Keep patient n.p.o.
Patient with history of heart failure.
Avoid aggressive IV fluid resuscitation
Start patient PPI
CT angiogram pending
Trend H&H. Blood consent in chart
Transfuse for hemoglobin less than 7 or with acute bleeding episode
GI consulted
#Mild hyperkalemia
monitor for now
Pt with multiple BM.
#COPD
#Chronic hypoxic respiratory failure
Recent pneumonia treatment
Continue with inhalers and as needed nebulizer
Check CXR
#Paroxysmal atrial fibrillation
Continue with metoprolol
Monitor on telemetry
Anticoagulation has been held due to GI bleed
#Chronic HFpEF
Holding diuretics in the setting of GI bleeding
Hold goal-directed medical therapy with losartan and Aldactone for now
Monitor weights
#DVT prophylaxis SCDs in the setting of gastrointestinal bleeding
Full code per patient
I spent a total of 80 minutes with the patient or on the floor. More than 50% of this time involved counseling and coordination of care.
Portions of this chart may have been created with voice recognition software.� Occasional wrong word or �sound alike� substitutions may have occurred due to the inherent limitations of voice recognition software.
--- NOTE | 2025-02-22 11:11 | CM ---
Chart reviewed and spoke with patient and Cindy at ED bedside
He was in the hospital 02/03-02/10 with dx of PNA and discharged home with [facility] and home O2 by [employer]
Lives with in [facility] [address] [facility]
DME walker and home O2
PCP Dr. Tristan Moore
RX plan yes
Pharmacy [facility]
Current with Kavya GONZALEZ the liaison made aware of his admission
no hx of SNF
DCP to go home with HHC
Will continue to follow up for any dcp needs
--- NOTE | 2025-02-22 11:15 | CON.GI ---
Addendum entered and electronically signed by Nereida Powers MD 02/22/25 13:10:
I saw and examined the patient.
The BLENDING KETTLE TENDER's note was reviewed and I agree with the note.
Comment: This is a 79-year-old male with past medical history as listed below but also significant for a recent admission from 02/03-02/10 for acute hypoxemic respiratory failure from pneumonia and COPD exacerbation and also CHF HFpE. was treated
with antibiotics, steroids and also during that admission had new onset of A-fib with RVR and was started on Eliquis on 02/03/2025 and also was started on metoprolol, Lasix and Aldactone and was taken off HCTZ because of hyponatremia who now presents
to the emergency room with symptoms of painless rectal bleeding which started earlier today morning and has had a total of 3 episodes. He is also currently feeling anxiety and also is tachycardic and diaphoretic and has wheezing on exam. He denies
any abdominal pain. No nausea vomiting or hematemesis no symptoms of reflux. No prior history of GI bleed. His last colonoscopy was in [address] Lima and he did have 5 colon polyps removed at that time which were tubular adenomas and sessile
serrated lesion and was recommended colonoscopy in 3 years unfortunately he has not followed up.
Assessment and plan lower GI bleed most likely related to diverticulosis since he has painless rectal bleeding versus angioectasias less likely ischemic colitis. Will get a stat CT angiogram since he has had 2 more episodes since he came into the
emergency room he did take his Eliquis dose already today but will hold it now. Given his recent admission for pneumonia and COPD exacerbation and current wheezing will need a chest x-ray also and may need a nebulizer treatment our BLENDING KETTLE TENDER discussed
with the admitting team. Continue to monitor his hemoglobin and may need blood transfusion if hemoglobin drops less than 8. He is overdue for a colonoscopy given his history of tubular adenoma and sessile serrated lesions in 2018 he was
recommended to come back in 3 years. He will need a repeat colonoscopy after DC but may need to be performed sooner this admission if he continues to have bleeding. Doubt brisk upper GI bleed.
Original Note:
Consultation
-
Date/Time Consultation Requested: 02/22/251044
Date/Time Consultation Performed: 02/22/251044
Requesting Provider: Dr. Cooper
Performing Provider: Dr. Villalta/JOSE Hardy
Reason for Consultation: GI bleed
Medical History
Chief Complaint / HPI
Chief Complaint: rectal bleeding
History of Present Illness:
79-year-old male with past medical history of HFpEF, newly diagnosed atrial fibrillation recently started on Eliquis 02/03/2025, hypertension, emphysema/COPD, right lower lobe pneumonia(currently on home O2, 1 L during the day and 2 L at night)
hypertension, hyponatremia, multiple colon polyps (2018) who presents to the emergency room with acute bright red blood per rectum. Asked to evaluate for the same. The patient states that he woke up this morning had a bowel movement. Had
associated blood afterwards bright red blood per rectum. Proceeded to have a follow-up episode of rectal bleeding. He did take his dose of Eliquis this morning. He had no abdominal discomfort associated with this. Brought to the emergency room
for further evaluation. Has another episode at the present time. Denies any chest pain or dizziness. Is currently sweating, feels anxious. Is tachycardic (107) he has not hypotensive. Patient was recently admitted 02/03/2025 through 02/10/2025
for acute hypoxemic respiratory failure secondary to right lower lung pneumonia causing acute COPD exacerbation and acute HFpEF. Was treated with Rocephin, azithromycin, 6 days of prednisone (40 mg daily), Lasix and spironolactone started on
Eliquis and metoprolol at that time. The patient was also known to have hypertension. His hydrochlorothiazide was discontinued secondary to hyponatremia and amlodipine was also discontinued. They did increase his losartan. The patient denies any
NSAIDs at home. Currently on arrival WBC 10.9, hemoglobin 12.9 (previously hemoglobin was 15.4 on 02/10/2025), hematocrit 39.0, platelets 273, PT 19.6, INR 1.60, sodium 137, potassium 5.2, chloride 103, CO2 28, BUN 39 (previously 47), creatinine
0.9, glucose 131, total bilirubin 1.0, AST 31, ALT 55, alk phos 64. No imaging. Rectal exam performed by ER with maroon stool in rectal vault.
Past Medical History
Past Medical History: Other (HFpEF, A-fib, hypertension, emphysema, COPD, right lower lobe pneumonia, hypertension, hyponatremia, multiple colon polyps (2018),)
Past Surgical History: None
Social History
Tobacco: Former Smoker
Alcohol: Daily (Glass of wine daily)
Drug: None
Personal:
Living: With Family
Employment: Retired
Family History
Family History: Other (No family history of gastrointestinal malignancy)
Allergies / Home Medications
Allergy/AdvReac Type Severity Reaction Status Date / Time
No Known Allergies Allergy Unverified 02/03/25 14:47
�Medication �Instructions �Recorded
fluticasone 250 mcg-salmeterol 50 1 inh inhalation R BID sob 02/03/25
mcg/dose blistr powdr for
inhalation (Advair Diskus)
umeclidinium 62.5 mcg/actuation 1 inh inhalation R DAILY sob 02/03/25
blister powder for inhalation
(Incruse Ellipta)
apixaban 5 mg tablet (Eliquis) 5 mg PO BID Blood clot 02/04/25
prevention/tx #60 tabs
losartan 50 mg tablet 50 mg PO DAILY Blood pressure #30 02/07/25
tabs
metoprolol succinate 25 mg 25 mg PO DAILY Arrhythmia #30 tabs 02/07/25
tablet,extended release 24 hr
benzonatate 100 mg capsule 200 mg (2 x 100 mg) PO TIDPRN PRN 02/10/25
cough #30 caps
spironolactone 25 mg tablet 25 mg PO DAILY Blood pressure #30 02/10/25
tabs
furosemide 20 mg tablet (Lasix) 20 mg PO TID edema, heart failure 02/22/25
Review of Systems
-
All other systems: A 12 pt ROS was Negative except as stated above in HPI
Vital Signs
Temp Pulse Resp BP Pulse Ox
98.9 F 103 25 128/72 99
02/22/25 08:30 02/22/25 09:00 02/22/25 09:00 02/22/25 09:00 02/22/25 09:00
Physical Exam
Exam
General: Other (Patient appears anxious, diaphoretic)
HEENT: Anicteric
Respiratory: Other (O2 saturation 96% on 2 L, bilateral wheezes with inspiration and expiration)
Cardiac: Irregular Rhythm (Tachycardic at 107)
GI: Soft, Non Tender, Non Distended and Normal Bowel Sounds
Rectal: Maroon Stools (Rectal exam performed by ER with maroon stools in rectal vault)
Musculoskeletal: No Edema
Skin: Rash (Tiny petechial rash between webbing of hands bilaterally, no splinter hemorrhages noted on fingernails. No lower extremity petechiae or other petechiae noted on body)
Neuro: AO x 3
Psych: Other (Anxious)
Results
WBC 10.9 10^3/uL (4.8-10.8) H 02/22/25 08:33
Hgb 12.9 g/dL (13.0-18.0) L 02/22/25 08:33
Hct 39.0 % (39.0-52.0) 02/22/25 08:33
MCV 94.7 fL (80.0-94.0) H 02/22/25 08:33
Plt Count 273 10^3/uL (130-400) 02/22/25 08:33
Absolute Neuts (auto) 9.1 10^3/uL (1.4-6.5) H 02/22/25 08:33
PT 19.6 Sec (11.4-14.6) H 02/22/25 08:33
INR 1.60 02/22/25 08:33
APTT 32.0 Sec (23.4-35.0) 02/22/25 08:33
Sodium 137 mmol/L (135-145) 02/22/25 08:33
Potassium 5.2 mmol/L (3.5-5.1) H 02/22/25 08:33
Chloride 103 mmol/L (98-107) 02/22/25 08:33
Carbon Dioxide 28 mmol/L (22-30) 02/22/25 08:33
BUN 39 mg/dl (9-20) H 02/22/25 08:33
Creatinine 0.9 mg/dL (0.7-1.3) 02/22/25 08:33
Calcium 9.1 mg/dl (8.4-10.2) 02/22/25 08:33
Total Bilirubin 1.0 mg/dl (0.2-1.3) 02/22/25 08:33
AST 31 U/L (17-59) 02/22/25 08:33
ALT 55 U/L (0-50) H 02/22/25 08:33
Alkaline Phosphatase 64 U/L (38-126) 02/22/25 08:33
Diagnostic Image Results:
None
Prior GI Procedures:
EGD: None
Colonoscopy: 01/19/2018 (Dr. Lima)
- One 7 mm polyp in the proximal transverse colon,
removed with a hot snare. Resected and retrieved.
- One 7 mm polyp in the distal ascending colon, removed
with a hot snare. Resected and retrieved. Clip was
placed.
- One 4 mm polyp in the rectum, removed with a hot
snare. Resected and retrieved.
- One 3 mm polyp in the rectum, removed with a hot
snare. Resected and retrieved.
- One 2 mm polyp in the rectum, removed with a hot
snare. Resected and retrieved.
- The examination was otherwise normal.
Repeat colonoscopy 3 years recommended. pathology: Tubular adenomas and polyps transverse colon, rectum, also sessile serrated adenoma in rectum. Rectal hyperplastic polyps in rectum.
Assessment / Plan
-
79-year-old male with past medical history of HFpEF, newly diagnosed atrial fibrillation recently started on Eliquis 02/03/2025, hypertension, emphysema/COPD, right lower lobe pneumonia(currently on home O2, 1 L during the day and 2 L at night)
hypertension, hyponatremia, multiple colon polyps (2018) who presents to the emergency room with acute bright red blood per rectum. Asked to evaluate for the same. The patient states that he woke up this morning had a bowel movement. Had
associated blood afterwards bright red blood per rectum. Proceeded to have a follow-up episode of rectal bleeding. He did take his dose of Eliquis this morning. He had no abdominal discomfort associated with this. Brought to the emergency room
for further evaluation. Painless rectal bleeding started this morning. Has had at least 3 episodes. Took Eliquis this a.m. Currently feels as if he has another episode. Patient with diaphoresis, tachycardia. Hemoglobin currently 12.9 down from
baseline of 15.4 (02/10/2025). Patient also noticed to have wheezing with inspiration and expiration. O2 saturation within normal limits on 2 L supplemental oxygen.
Impression:
Acute GI bleed, lower likely
--> Last colonoscopy in 2018 did not show diverticulosis however seems to be likely
--> Hemoglobin 12.9 (down from 15.4, 02/10/2025)
Acute blood loss anemia
A-fib with RVR, on Eliquis (last dose this morning)
HFpEF
COPD/emphysema, currently on supplemental oxygen 2 L
Right lower lobe pneumonia, recently treated
Plan:
- Obtain stat CTA abdomen and pelvis
- N.p.o. except meds
- Type screen and cross in case blood products needed
- Hold Eliquis
- Trend hemoglobin every 6 hours
- Recommend chest x-ray given patient's wheezing, to evaluate if COPD exacerbation versus recovering pneumonia versus A-fib RVR with HFpEF overload, especially if needed to give blood product
- Further recommendations to be forthcoming.
-
-
Thank you for consultation and allowing me to participate in the patient's care. Please call the search engine optimization consultant GI physician during the after hours with any questions or concerns.
--- NOTE | 2025-02-22 11:27 | PTCARENOTE ---
pt had moderate loose/liquid maroon/dark red bm on bedpan.
[2025-02-22 13:31] LABS: Hematocrit 32.5 % (39.0-52.0); Hemoglobin 10.9 g/dL (13.0-18.0)
[2025-02-22] MEDS: PROTONIX IV 40 MG IV ×2 (13:39→20:13)
[2025-02-22] MEDS: NSS (PRESERVATIVE FREE) 10 ML IV ×2 (13:39→20:13)
[2025-02-22] MEDS: DUONEB 3 ML INH (13:45)
--- NOTE | 2025-02-22 13:49 | PTCARENOTE ---
Pt admitted to room 3352 from the ED. Pt arrived and moved himself over from stretcher to bed. He became short of breath after this, but patient stating he is always short of breath and feels no worse than normal. Pt able to answer all admission
questions. Voice is hoarse, states it's from his COPD. Pt needing bedpan shortly following arrival. Pt did have a moderate amount of maroon/black liquid from rectum. H&H sent. made aware about bleeding and also that hgb down to 10.9. No
new orders at this time. Spouse at bedside and both patient and spouse updated with plan of care. Assessment, care and VS as charted.
--- NOTE | 2025-02-22 14:29 | VNURNOTE ---
Home health liaison met with patient and spouse. Patient current with [facility] services and would like to resume services after discharge. [facility] referral completed in care port
--- NOTE | 2025-02-22 18:17 | PTCARENOTE ---
Patient had another 4 maroon/black liquid stools. Pt reporting 'not feeling right.' Pt states that he feels shaky and does not feel like his breathing is recovering as quickly as it usually does. Pt asking for O2 to be increased from 1L to 2L. Vital
signs stable. BP 112/87, HR 98. TT to , who advised to get next H&H early. Sent to Lab.
[2025-02-22 18:22] LABS: Hematocrit 31.2 % (39.0-52.0); Hemoglobin 10.2 g/dL (13.0-18.0)
[2025-02-22] MEDS: LR 1000 IV (18:28)
--- NOTE | 2025-02-22 18:42 | PTCARENOTE ---
Pt's hgb 10.2. ordered gentle IVF, LR @ 70mls/hr, see MAR.
[2025-02-22] MEDS: XANAX 0.25 MG PO (20:13)
[2025-02-22] MEDS: ADVAIR HFA 115/21 MCG INHALER 2 PUFF INH (20:33)
--- NOTE | 2025-02-22 21:48 | PTCARENOTE ---
Assumed care for patient overnight. Upon initial assessment pt tachypneic w/ shallow respirations. Pt pallor w/ cool extremities making it difficult to get accurate pulse ox reading. Hands warmed w/ warm blankets. SpO2 100% on 2L NC. Pt states
weakness in R hand, grasp slightly weaker than left however +5 strength equal b/l upper and lower extremities, sensation intact bilaterally. Pt expresses feeling 'very anxious'. JOSE Willett made aware, one time order for Xanax administered, see
MAR. Voice is hoarse however states that is typical for him. Pt has a moist non-productive cough, lungs are diminished throughout. Pt had 2 bloody BMs on the bedpan at change of shift. IVF infusing @70ml/hr. Assessment and care as charted. H&H due
at 0015. Call palm is within reach.
[2025-02-22 23:10] LABS: Glucose - Point of Care 139 mg/dl (70-99)
--- NOTE | 2025-02-22 23:13 | RR ---
A Rapid Response was called on this patient, please see Rapid Response form.
Rapid response and stroke alert called around 2200. Patient had a change in status. Patient aphasic, unable to respond back verbally, as compared to previous assessment. Patient not following commands. STAT CT ordered.
--- NOTE | 2025-02-22 23:18 | W.PN.UPDATE ---
Update Note
Progress Note Update
RR called at @2250- RN stated pt was less responsive/ not following commands- last known normal was 2220. VSS. BS 139. Pt did receive x1 dose of .25mg PO Xanax- for anxiety related to how many blood BMs he was having @ 2012. Upon arrival to the
floor nursing staff was asking pt to repeat his name or date of and pt was unable to respond verbally. He was also not tracking peripherally in either eye. He would make noises with painful stimuli. NIH initially- 3. upon arrival to the CT
scanner pt was able to response verbally- still with dysarthria and poor peripheral visual tracking- could tell us his name, age and month- but could not say hospital. [facility] contacted and agreed that pt was not a TNK candidate- but
after imagining agreed to transfer pt. Following CT NIH now a 2 for mild dysarthria and L vision field deficit. [facility] fellow suggested drawing labs for D-dimer (0.29), A1C, and a lipid panel (Triglycerides- 100,Total cholesterol 87, LDL 41, VLDL 20,
HDL 26) - Latest hemoglobin was 8.5 down from 10.2.
CT read a large perfusion defect in the left MCA near occlusion of the left ICA CBF: 0ml.
Dr. Jamal Thompson is the accepting doctor.
Spoke with Cindy over the phone- she is aware of the plan of care.
[2025-02-23] VITALS: BP 98/49
[2025-02-23 00:14] VITALS: BP 116/70
[2025-02-23 00:44] LABS: Hematocrit 24.9 % (39.0-52.0); Hemoglobin 8.5 g/dL (13.0-18.0)
[2025-02-23 00:47] LABS: HDL Cholesterol 26 mg/dl; LDL Cholesterol, Calculated 41 mg/dl; Very Low Density Lipoprotein 20 mg/dl (0-30)
[2025-02-23 01:10] LABS: D-Dimer 0.29 ug/mlFEU (0.00-0.50)
--- NOTE | 2025-02-23 01:17 | PTCARENOTE ---
Patient received back from CT. NIHSS improved to 3, Pt still presenting w/ mild aphasia, see worklist. Pt following commands and responding verbally now compared to when stroke alert was called. Spoke to Dr. Johnson regarding CT results. JOSE
Tamie made aware. Awaiting transport to [facility] for close neurology care.
--- NOTE | 2025-02-23 02:06 | PTCARENOTE ---
Pt aware of transport and current status. Called report to [facility] to Vidya DUNN. EMS here to transport the patient. All belongings collected and sent with the patient.
--- NOTE | 2025-02-23 07:07 | W.DCSUMMARY ---
Documented by User: Simon Almanzar MD 02/23/25 07:07
Discharge Summary
Discharge Data
Date of Admission: 02/22/25
Date of Discharge: 02/23/25
-
Pending Results: No
Discharge Plan
-
Patient Disposition: Acute Care Hospital
Discharge Orders:
Discharge Patient (As Directed); Ordered 02/23/25
Ordered By: Tamie Sheppard
Discharge Date and Time
Discharge Date/Time: 02/23/25 02:17
Print Language: UZBEK

Documented by User: Pablo Cooper MD 02/27/25 15:52
Discharge Summary
Discharge Data
Date of Admission: 02/22/25
Date of Discharge: 02/23/25
-
Pending Results: No
Hospital Course
79-year-old male past medical history of atrial fibrillation, COPD, hypertension, hyperlipidemia, chronic hypoxic respiratory failure, chronic coagulopathy with Eliquis who is presenting from home with bright red blood per the rectum. Patient
stated to 3 episode of bright red blood per the rectum prior to arrival to the hospital. Patient did take a dose of Eliquis prior to coming into the hospital. Patient hemoglobin was trended. Patient was eval by gastroenterology for
gastrointestinal bleeding. GI bleed was seen most likely diverticulosis since it was painless rectal bleeding versus AVMs. CT abdomen/pelvis angiogram of the abdomen pelvis was performed which was negative for acute onset of bleeding. Patient did
have multiple additional bright red blood per rectum while admitted in IMU.. Overnight patient was found to be less responsive and not following commands. Patient did receive a dose of Xanax for anxiety earlier. Stroke alert was called. [facility]
stroke center was contacted and patient was deemed not a TNK candidate. 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
the proximal vessel. Small size of the more distal left ICA. Patient was transferred to [facility] and was accepted by Dr. Jamal Thompson.
Discharge Plan
-
Patient Disposition: Acute Care Hospital
Discharge Orders:
Discharge Patient (As Directed); Ordered 02/23/25
Ordered By: Tamie Sheppard
Discharge Date and Time
Discharge Date/Time: 02/23/25 02:17
Print Language: UZBEK
[2025-02-23 12:13] LABS: Glycohemoglobin (HgbA1c) 5.3 % (4.0-5.9)
== END 2025-02-23 02:17 | disposition short-term general hospital (02) | DRG 378 ==
LOC: IMU 10:58
PROVIDERS: ADMITTING PHYSICIAN Hospitalist; CONSULT PHYSICIAN Internal Medicine Gastroenterology; EMERGENCY PHYSICIAN Emergency Medicine; FAMILY PHYSICIAN Family Medicine
DX: K92.2 Gastrointestinal hemorrhage, unspecified (principal); D62 Acute posthemorrhagic anemia; D68.32 Hemorrhagic disorder due to extrinsic circulating anticoagulants; J44.0 Chronic obstructive pulmonary disease with (acute) lower respiratory infection; J96.11 Chronic respiratory failure with hypoxia; I50.32 Chronic diastolic (congestive) heart failure; E87.1 Hypo-osmolality and hyponatremia; E87.5 Hyperkalemia; Z79.01 Long term (current) use of anticoagulants; J43.9 Emphysema, unspecified; Z87.01 Personal history of pneumonia (recurrent); I48.0 Paroxysmal atrial fibrillation; I11.0 Hypertensive heart disease with heart failure; E78.00 Pure hypercholesterolemia, unspecified; F41.9 Anxiety disorder, unspecified; Z79.51 Long term (current) use of inhaled steroids; Z79.899 Other long term (current) drug therapy; Z86.0100 Personal history of colon polyps, unspecified; Z87.891 Personal history of nicotine dependence
CPT/HCPCS: 0042T; 70450; 70496; 70498; 71046; 74174; 80053; 80061; 82962; 83036; 85014; 85018; 85025; 85379; 85610; 85730; 86850; 86900; 86901; 93005; 94640; 99285; Q9967